=== PATIENT | male | born 1935 | race Caucasian/White ===

== ENCOUNTER 2024-11-27 17:37 | Emergency (ER) | payer MEDICARE, SELFPAY ==
--- NOTE | ~2024-11-27 | CT_ITS ---
EXAMINATION: CT brain wo con DATE: 11/27/2024 19:02 INDICATION: head injury . TECHNIQUE: Computed tomography (CT) of the head was performed without intravenous contrast. The mA wa s adjusted according to patient size. Iterative reconstruction technique was employed. The dose-lengt h product was 747.47 mGy-cm. COMPARISON: None. FINDINGS: Exam limited by nonstandard positioning. No acute intracranial hemorrhage or extra-axial fluid collection. No hydrocephalus, mass, or herniation. No acute ischemic infarct. Unremarkable dural venous sinus attenuation. No acute osseous abnormality. Right frontal scalp hematoma. Left frontal and anterior/middle ethmoid opacification, moderate left maxillary mucosal thickening, m ild right maxillary mucosal thickening, minimal aerated secretions in the left maxillary sinus, right mastoid fluid, the remaining aerated spaces are clear. IMPRESSION: No acute intracranial process. Left-sided OMU pattern of sinus disease with minimal aerated secretions that may indicate presence of acute sinusitis versus mild mucosal hemorrhage in the setting of trauma. Reviewed, dictated and finalized at location K. IMPRESSION: No acute intracranial process. Left-sided OMU pattern of sinus disease with minimal aerated secretions that ma y indicate presence of acute sinusitis versus mild mucosal hemorrhage in the se tting of trauma.
--- NOTE | 2024-11-27 17:42 | ED.FALL ---
HPI - Fall General Chief Complaint: Wound/Laceration Stated Complaint: lac s/p fall forward History of Present Illness HPI Narrative: Pt slid off cough onto ground. No LOC. Pt not on blood thinners. Pt his baseline per staff and EMS. Pt has superficial laceration to forehead with bandage in place. Unable to contact POA so not able to permit refusal. Related Data Allergies Allergy/AdvReac Type Severity Reaction Status Date / Time No Known Allergies Verified 08/14/09 11:45 Review of Systems Review of Systems: ROS unobtainable: Yes unobtainable due to mental status Exam Const: General: healthy appearing and no acute distress Nutritional Appearance: well nourished Limitations: altered mental status (baseline) HENMT: Head: laceration (superficial laceration to forehead no bleeding) Eyes: Conjunctivae: conjunctivae normal Neck: Neck: normal visual inspection and no lymphadenopathy Resp: Effort & Inspection: normal respiratory effort Auscultation: clear to auscultation bilaterally Cardio: Rate: regular rate Rhythm: regular rhythm GI: GI Palp: Yes Soft to palpation and No Tenderness to palpation present (GI) Auscultation: normal bowel sounds Skin: General skin exam: normal color Rashes: no rashes Neuro: General: moves all extremities and no focal motor deficits Extrem: General: normal to inspection and no clubbing, cyanosis or edema Psych: Other: combative MDM - Fall MDM Narrative Medical decision making narrative: Pt had mild fall off couch and seems to be at baseline. has suprficial lac. no blood thinners. should be safe for discharge back. Discharge Plan Discharge Clinical Impression: Laceration Patient Disposition: Home, Self-Care Condition: Stable Instructions: Antibiotic Form, Laceration (ED), Head Injury (DC) Patient Language: Kittitian Follow-up/Referrals: Cheng,Harsha Pichardo MD [Primary Care Provider] -
[2024-11-27 17:58] VITALS: BP 95/64; PULSE 67; RESP 20; TEMP 36.7; O2SAT 97
--- OUTSIDE RECORDS SUMMARY | 2024-11-27 19:21 | XMS_ITS | Clinical Summary ---
Author Organization [facility] Address [address] [place] [address] Phone Care Team Providers Care Marble Installer Name Role Phone Unavailable Unavailable Unavailable Reason for Visit and Chief Complaint GENERAL OFFICE VISIT Plan of Treatment No Plan of Treatment Recorded Assessments Includes: Assessments from this encounter No Assessments Recorded Medical Equipment - Implanted Devices Includes: Current Devices No Medical Equipment Recorded Medications Administered Includes: Administered Medications from this encounter No Administered Medications Recorded Results Includes: Results discussed during this encounter No Results Recorded For Specified Dates History of Present Illness Includes: History of Present Illness from this encounter No History of Present Illness Recorded Social History No Social History Recorded - Smoking Status Unknown Medical History Includes: Medical History addressed during this encounter No Medical History Recorded Family History Includes: Family History addressed during this encounter No Family History Recorded Review of Systems Includes: Review of Systems from this encounter No Review of Systems Recorded Mental Status Includes: Mental Status from this encounter No Mental Status Recorded Functional Status Includes: Functional Status from this encounter No Functional Status Recorded Physical Exam Includes: Physical Exam from this encounter No Physical Exam Recorded Encounters Encounter Provider Location Date Check-In Time Check- Out Time Diagnosis GENERAL OFFICE VISIT CHERYL BAEZ M.D. [facility] OP 1 9:30AM 11:59PM Clinical Notes Includes: Clinical Notes from this encounter No Clinical Notes Recorded
--- OUTSIDE RECORDS SUMMARY | 2024-11-27 19:22 | XMS_ITS ---
Care Plan - [facility] Medical Group [facility] Created on: November 27, 2024 GREGORIO LEWIS : 1935 Sex: Male Author Organization [facility] Medical [facility] S Address [address] [place] [phone] Phone Care Team Providers Care Weatherization Installer Name Role Phone CHERYL BAEZ MD Primary Care Provider
--- OUTSIDE RECORDS SUMMARY | 2024-11-27 19:22 | XMS_ITS | Clinical Summary ---
Author Organization [facility] Medical [facility] S Address [address] [place] [phone] Phone Care Team Providers Care Apprentice Embalmer Name Role Phone SASHA LANDRY, CHERYL MENDEZ Primary Care Provider [phone] Reason for Visit and Chief Complaint [facility] Plan of Treatment No Plan of Treatment [...] Date Check-In Time Check- Out Time Diagnosis [facility] CHERYL BAEZ MD [facility] 10:00AM 11:59PM Insurance Includes: Active Insurance Policies No Insurance Coverage Recorded Guarantor Relationship Effective Dates Guarantor Ph one GREGORIO LEWIS Self [id number] Clinical Notes Includes: Clinical Notes from this encounter No Clinical Notes Recorded
--- OUTSIDE RECORDS SUMMARY | 2024-11-27 19:22 | XMS_ITS | Clinical Summary ---
Author Organization [facility] Address [address] [place] [address] Phone Care Team Providers Care Wedding Makeup Artist Name Role Phone Unavailable Unavailable Unavailable Reason [...] Diagnosis GENERAL OFFICE VISIT CHERYL BAEZ M.D. [facility] OP 1 11:30AM 11:59PM Clinical Notes Includes: Clinical Notes from this encounter No Clinical Notes Recorded
--- OUTSIDE RECORDS SUMMARY | 2024-11-27 19:22 | XMS_ITS | Clinical Summary ---
Author Organization [facility] Address [address] [place] [address] Phone Care Team Providers Care Director Of Public Works Name Role Phone Unavailable Unavailable Unavailable Reason for Visit and Chief Complaint MEMORY [...] Out Time Diagnosis [facility] CHERYL BAEZ M.D. [facility] OP 2 11:30AM 11:59PM Clinical Notes Includes: Clinical Notes from this encounter No Clinical Notes Recorded
--- OUTSIDE RECORDS SUMMARY | 2024-11-27 19:22 | XMS_ITS | Encounter Summary ---
Author Organization [facility] Address [address] [place] [address] Phone Care Team Providers Care Oil And Gas Superintendent Name Role Phone Harsha Anand MD Primary Care Provider Kristi Roy MA Unavailable [phone] Danna Goel LCSW Unavailable [phone] Danna Goel LCSW Unavailable [phone] Lion More MD Primary Care Provider Harsha Anand MD Primary Care Provider Encounter Details Date Type Department Care Team (Late st Contact Info) Description 01/18/[address] [facility] ProviderJodee MD [facility] [place] [address] Social History Tobacco Use Types Packs/Day Years Used Date Smoking Tobacco: Never Smokeless Tobacco: Never Alcohol Use Standard Drinks/Week Comments Yes 0 (1 standard drink = 0.6 oz pur e alcohol) Sex and Gender Information Value Date Recorded Sex Assigned at Not on file Legal Sex Male 6:38 AM CONTAINER PACKER OPERATOR Gender Identity Not on file Sexual Orientation Not on file documented as of this encounter Plan of Treatment Not on file documented as of this encounter Procedures Procedure Name Priority Date/Time Associated Diagnosis Comments DISCHARGE LABORATORY CUMULATIVE REPORT 01/18/2018 12:00 AM CDT documented in this encounter Results * DISCHARGE LABORATORY CUMULATIVE REPORT (01/18/2018 12:00 AM CDT) Narrative 01/18/2018 12:00 AM CDT Ordered by an unspecified provider. us Historical Provider LAB BLOOD ORDERABLES Denice l Result documented in this encounter Visit Diagnoses Not on filedocumented in this encounter Additional Health Concerns Infection Onset Date Last Indicated Resolved Time COVID: Suspected 02/27/2022 02/27/2022 02/27/2022 10:15 AM CDT COVID: Suspected 06/07/2024 06/07/2024 06/07/2024 9:32 PM CDT COVID: Suspected 11/09/2024 11/09/2024 11/09/2024 2:24 PM CONTAINER PACKER OPERATOR COVID19 Comment:S&S onset date 11/09/2024. Pt is not immunosuppressed. Patient is first eligible for COVID: Recovered evaluation on 11/20/2024. Please reach out to Infection Prevention at that time to change isolation status if the provider feels criteria is met.Shon Rodgers IP Patient COVID-19 Recovered 11/20/2024 11/09/2024 11/09/2024 03/0 11/2024 7:40 AM CONTAINER PACKER OPERATOR COVID: Recovered Comment:Added based on recent COVID infection. 11/20/2024 11/20/2024 documented as of this encounter Care Teams Oil And Gas Superintendent Relationship Specialty Start Date End Date Harsha Anand MD PCP - General 12/18/16 08/03/24 Lion More MD [address] [place] [address] [place] [address] PCP - General Dermatology 08/04/24 10/15/24 Harsha Anand MD [address] [place] [address] [place] [address] PCP - General Internal Medicine 10/16/24 Kristi Roy, SIMON [address] [facility] [address] [place] [address] ACO Care Lead Ramp Service Man 05/13/21 05/13/21 Danna Goel LCSW [address] [place] [address] [address] [place] [address] Superintendent Storage Area 11/17/21 11/17/21 Danna Goel LCSW [address] [place] [address] [address] [place], [place] [id number] Superintendent Storage Area 11/17/21 12/09/21 documented as of this encounter
--- OUTSIDE RECORDS SUMMARY | 2024-11-27 19:22 | XMS_ITS ---
Author Organization [facility] S Address [address] [place] [phone] Phone Care Team Providers Care Manager Administration Name Role Phone CHERYL BAEZ MD Primary Care Provider [phone] Plan of Treatment No Plan of Treatment Recorded Assessments Includes: Assessments for all patient encounters No Assessments Recorded Medical Equipment - Implanted Devices Includes: Current and historical Devices No Medical Equipment Recorded Medications Administered Includes: Administered Medications in patient's chart No Administered Medications Recorded Results Includes: Results from 11/28/2023 through 11/27/2024 No Results Recorded For Specified Dates History of Present Illness History of Present Illness not supported for this document type No History of Present Illness Recorded Social History No Social History Recorded - Smoking Status Unknown Medical History Includes: Medical History in patient's chart No Medical History Recorded Family History Includes: Family History in patient's chart No Family History Recorded Review of Systems Review of Systems not supported for this document type No Review of Systems Recorded Mental Status No Mental Status Recorded Functional Status No Functional Status Recorded Physical Exam Physical Exam not supported for this document type No Physical Exam Recorded Insurance Includes: Active Insurance Policies No Insurance Coverage Recorded Guarantor Relationship Effective Dates Guarantor Ph one GREGORIO LEWIS Self [id number] Clinical Notes Includes: Signed Clinical Notes starting from 10/09/2022 No Clinical Notes Recorded
--- OUTSIDE RECORDS SUMMARY | 2024-11-27 19:22 | XMS_ITS | Encounter Summary ---
Author Organization [facility] Address [address] [place] [address] Phone Care Team Providers Care Oil Field Pumper Name Role Phone Harsha Anand MD Primary Care Provider Kristi Roy MA Unavailable [phone] Danna Goel LCSW Unavailable [phone] Danna Goel LCSW Unavailable [phone] Lion More MD Primary Care Provider Harsha Anand MD Primary Care Provider Encounter Details Date Type Department Care Team (Late st Contact Info) Description 11/08/2017 Orders Only [facility] ProviderJodee MD [facility] [place] [address] Social History Tobacco Use Types Packs/Day Years Used Date Smoking Tobacco: Never Smokeless Tobacco: Never Alcohol Use Standard Drinks/Week Comments Yes 0 (1 standard drink = 0.6 oz pur e alcohol) Sex and Gender Information Value Date Recorded Sex Assigned at Not on file Legal Sex Male 6:38 AM INSPECTOR SCREEN PRINTING Gender Identity Not on file Sexual Orientation Not on file documented as of this encounter Plan of Treatment Not on file documented as of this encounter Procedures Procedure Name Priority Date/Time Associated Diagnosis Comments DISCHARGE LABORATORY CUMULATIVE REPORT 11/08/2017 12:00 AM INSPECTOR SCREEN PRINTING documented in this encounter Results * DISCHARGE LABORATORY CUMULATIVE REPORT (11/08/2017 12:00 AM INSPECTOR SCREEN PRINTING) Narrative 11/08/2017 12:00 AM INSPECTOR SCREEN PRINTING Ordered by an unspecified provider. us Historical Provider LAB BLOOD ORDERABLES Denice l Result documented in this encounter Visit Diagnoses Not on filedocumented in this encounter Additional Health Concerns Infection Onset Date Last Indicated Resolved Time COVID: Suspected 02/27/2022 02/27/2022 02/27/2022 10:15 AM CDT COVID: Suspected 06/07/2024 06/07/2024 06/07/2024 9:32 PM CDT COVID: Suspected 11/09/2024 11/09/2024 11/09/2024 2:24 PM INSPECTOR SCREEN PRINTING COVID19 Comment:S&S onset date 11/09/2024. Pt is not immunosuppressed. Patient is first eligible for COVID: Recovered evaluation on 11/20/2024. Please reach out to Infection Prevention at that time to change isolation status if the provider feels criteria is met.Shon Rodgers IP Patient COVID-19 Recovered 11/20/2024 11/09/2024 11/09/2024 03/0 11/2024 7:40 AM INSPECTOR SCREEN PRINTING COVID: Recovered Comment:Added based on recent COVID infection. 11/20/2024 11/20/2024 documented as of this encounter Care Teams Oil Field Pumper Relationship Specialty Start Date End Date Harsha Anand MD PCP - General 12/18/16 08/03/24 Lion More MD [address] [facility] [place] [address] PCP - General Dermatology 08/04/24 10/15/24 Harsha Anand MD [address] [place] [address] [place] [address] PCP - General Internal Medicine 10/16/24 Kristi Roy, SIMON [address] [facility] [address] [place], [place] [phone] ACO Care Licensing Registration Examiner 05/13/21 05/13/21 Danna Goel, LUC [address] [place] [address] [address] [place], [place] [phone] Professor Of Genetics 11/17/21 11/17/21 Danna Goel LCSW [address] [place] [address] [address] [place] [address] Professor Of Genetics 11/17/21 12/09/21 documented as of this encounter
[2024-11-27 19:23] VITALS: BP 110/65; PULSE 66; RESP 18; RESP 19; O2SAT 98
--- OUTSIDE RECORDS SUMMARY | 2024-11-27 19:23 | XMS_ITS | Encounter Summary ---
Author Organization [facility] Address [address] [facility] [place] [address] Care Team Providers Care Link Cutter Name Role Phone Unavailable Primary Care Provider Unavailabl e Encounter Details Date Type Department Care Team (Late st Contact Info) Description 08/21/2020 Lab Requisition [facility] DermPath Lab [address] [facility] [place] [phone] Lion More MD [address] [place] [address] Social History Tobacco Use Types Packs/Day Years Used Date Smoking Tobacco: Never Assessed Sex and Gender Information Value Date Recorded Sex Assigned at Not on file Gender Identity Not on file Sexual Orientation Not on file documented as of this encounter Plan of Treatment Not on file documented as of this encounter Procedures Procedure Name Priority Date/Time Associated Diagnosis Comments DERMATOPATHOLOGY Routine 08/20/2020 12:0 0 AM DEVICE PROCESSING ENGINEER documented in this encounter Results * DERMATOPATHOLOGY (08/20/2020 12:00 AM DEVICE PROCESSING ENGINEER) Case Report Dermatopathology Report Case: [id number] Authorizing Provider: Lion More MD Collected: 08/20/2020 12:00 AM Ordering Location: [facility] Derm[facility] Lab Received: 08/21/2020 10:53 AM Pathologist: Chastity Gutierrez MD Specimens: A) - Skin, right lower outer arm above elbow B) - Skin, right mid post upper arm 0 4:13 PM DEVICE PROCESSING ENGINEER DERMATOPATHOLOGY LABORATORY Final Diagnosis Specimen A. SKIN, right lower outer arm above elbow: BENIGN VERRUCOUS KERATOSIS, INFLAMED (L82.1) Specimen B. SKIN, right mid post upper arm: BENIGN VERRUCOUS KERATOSIS, INFLAMED (L82.1) 0 4:13 PM [facility] DERMATOPATHOLOGY LABORATORY Clinical History A-B: R/O SCC. 0 4:13 PM [facility] DERMATOPATHOLOGY LABORATORY Gross Description Specimen A: Received is one formalin filled container labeled with the patient's name and designated right lower outer arm above elbow. The specimen consists of a shave biopsy measuring [id number]. Jar 0. Specimen B: Received is one formalin filled container labeled with the patient's name and designated right mid post upper arm. The specimen consists of a shave biopsy measuring [id number]. Jar 0. 0 4:13 PM [facility] DERMATOPATHOLOGY LABORATORY Microscopic Description Specimen A. SKIN, right lower outer arm above elbow: Sections show hyperkeratosis, papillomatosis, hypergranulosis, and acanthosis. Inflammatory cells are present within the dermis. These histological findings can be seen in a verruca vulgaris or a seborrheic keratosis. Specimen B. SKIN, right mid post upper arm: Sections show hyperkeratosis, papillomatosis, hypergranulosis, and acanthosis. Inflammatory cells are present within the dermis. These histological findings can be seen in a verruca vulgaris or a seborrheic keratosis. 0 4:13 PM [facility] DERMATOPATHOLOGY LABORATORY Disclaimer An external and internal positive and negative controls are appropriate for the histochemical, immunohistochemical and immunofluorescence stain(s) in this case (if any), except where stated explicitly. The performance characteristics of the stain(s) cited in this report were developed and its performance characteristic determined by the Dermatopathology Laboratory at [facility], directed by Dr. Deion Bhatt. These tests need not be, and therefore are not, approved by the [place] Food and Drug Administration. The tests are used for clinical purposes. Billing Codes Specimen Charges Stain Charges 14045 35918 1 1 0 4:13 PM [facility] DERMATOPATHOLOGY LABORATORY Embedded Images 0 4:13 PM [facility] DERMATOPATHOLOGY LABORATORY Pathology/Cytology TISSUE SPECIMEN FROM SKIN / Unknown 08/20/2020 08/21/2020 10:53 AM DEVICE PROCESSING ENGINEER Miscellaneous samples (specimen) TISSUE SPECIMEN FROM SKIN / Unknown 08/20/2020 08/21/2020 10:53 AM DEVICE PROCESSING ENGINEER Lion More MD LAB - PATHOLOGY/CYTO LOGY ORDERABLES DERMATOPATHOLOGY LABORATORY [facility] - Department of Dermatology [facility] Medicine [address] [place] [address], [address] [phone] documented in this encounter Visit Diagnoses Not on filedocumented in this encounter
--- OUTSIDE RECORDS SUMMARY | 2024-11-27 19:23 | XMS_ITS | Encounter Summary ---
Author Organization [facility] Address [address] [facility] [place] [address] Care Team Providers Care On Line Csr Name Role Phone Unavailable Primary Care Provider Unavailabl e Encounter Details Date Type Department Care Team (Late st Contact Info) Description 07/06/2018 Lab Requisition [facility] DermPath Lab [address] [facility] [place] [phone] Lion More MD [address] [place] [address] Social History Tobacco Use Types [...] Priority Date/Time Associated Diagnosis Comments DERMATOPATHOLOGY Routine 07/05/2018 12:0 0 AM CDT documented in this encounter Results * DERMATOPATHOLOGY (07/05/2018 12:00 AM CDT) Case Report Dermatopathology Report Case: [id number] Authorizing Provider: Lion More MD Collected: 07/05/2018 12:00 AM Pathologist: Cachorro Bhatt MD Received: 07/06/2018 12:19 PM Specimen: Skin, left vertex post scalp 8 4:46 PM CDT DERMATOPATHOLOGY LABORATORY Final Diagnosis Specimen A. SKIN, left vertex post scalp: HYPERPLASTIC (HYPERTROPHIC) ACTINIC KERATOSIS (L57.0) HEALING SKIN CHANGES (L90.5) 8 4:46 PM CDT DERMATOPATHOLOGY LABORATORY Clinical History R/O Matias's. 4:46 PM CDT DERMATOPATHOLOGY LABORATORY Gross Description Specimen A: Received is one formalin filled container labeled with the patient's name and designated left vertex post scalp. The specimen consists of a shave biopsy measuring [id number]. Jar 0. 4:46 PM CDT DERMATOPATHOLOGY LABORATORY Microscopic Description Specimen A. SKIN, left vertex post scalp: There is hyperkeratosis alternating with parakeratosis. There is epidermal hyperplasia with disorderly maturation of keratinocytes with nuclear pleomorphism confined to the lower half of the epidermis. There is epidermal hyperplasia beneath which there are vascular proliferation, fibroblasts, and an edematous stroma. 4:46 PM CDT DERMATOPATHOLOGY LABORATORY Disclaimer An external and internal positive and negative controls are appropriate for the histochemical, immunohistochemical and immunofluorescence stain(s) in this case (if any), except where stated explicitly. The performance characteristics of the stain(s) cited in this report were developed and its performance characteristic determined by the Dermatopathology Laboratory at [facility]. These tests need not be, and therefore are not, approved by the [place] Food and Drug Administration. The tests are used for clinical purposes. Billing Codes Specimen Charges Stain Charges 65130 1 4:46 PM CDT DERMATOPATHOLOGY LABORATORY Embedded Images 4:46 PM CDT DERMATOPATHOLOGY LABORATORY Pathology/Cytolog y TISSUE SPECIMEN FROM SKIN / Unknown 07/05/2018 07/06/2018 12:19 PM CDT Lion More MD LAB - PATHOLOGY/CYTO LOGY ORDERABLES Performing Organization Address City/State/[facility] Co de Phone Number DERMATOPATHOLOGY LABORATORY [facility] - Department of Dermatology [address] [place] [address], [address]th [place] [address], [facility] [phone] documented in this encounter Visit Diagnoses Not on filedocumented in this encounter
--- OUTSIDE RECORDS SUMMARY | 2024-11-27 19:23 | XMS_ITS ---
Care Plan - [facility] Created on: November 27, 2024 GREGORIO LEWIS : 1935 Sex: Male Author Organization [facility] Address [address] [place] [address] Phone Care Team Providers Care Pattern Drum Maker Name Role Phone Unavailable Unavailable Unavailable
--- OUTSIDE RECORDS SUMMARY | 2024-11-27 19:23 | XMS_ITS | Clinical Summary ---
Author Organization [facility] Address [address] [place] [address] Care Team Providers Care Asphalt Tar And Gravel Roofer Name Role Phone Unavailable Primary Care Provider Unavailabl e Source Comments [facility],non-owned Affiliates and Associated Physician Practices is amultiple site organization consisting of ambulatory clinics and hospital sitesin [place], [place], [place] and [place]. This disclosure is being madepursuant to the Care Everywhere program and may not contain all information available regarding this patient. Last updated 18.[facility] [employer] Social History Tobacco Use Types Packs/Day Years Used Date Smoking Tobacco: Never Assessed Sex and Gender Information Value Date Recorded Sex Assigned at Not on file Gender Identity Not on file Sexual Orientation Not on file Plan of Treatment Health Maintenance Due Date Last Done Comments MEDICARE AWV 12 MONTHS 1936 DTAP/TDAP/TD VACCINES (1 - Tdap) 1955 PNEUMOCOCCAL VACCINE 50+ (1 of 1 - PCV) 1986 ZOSTER VACCINE (1 of 2) 1986 Respiratory Syncytial Virus (RSV) Vaccine Pt: or over 60 yrs (1 - 1-dose 75+ series) 2011 COVID-19 VACCINE (2023-2 5 season) 2024 INFLUENZA VACCINE (#1) 2024 DEPRESSION SCREENING 09/20/2024 HEPATITIS B VACCINE Aged Out No longe r eligible based on patient's age to complete this topic HIB VACCINE Aged Out No longer eligi ble based on patient's age to complete this topic HPV VACCINE Aged Out No longer eligi ble based on patient's age to complete this topic MENINGOCOCCAL (Group B) VACCINE Aged Out No longer eligible based on patient's age to complete this topic MENINGOCOCCAL VACCINE Aged Out No marlen praveena eligible based on patient's age to complete this topic
--- OUTSIDE RECORDS SUMMARY | 2024-11-27 19:23 | XMS_ITS | Encounter Summary ---
Author Organization [facility] Address [address] [place] [address] Care Team Providers Care Chucking Machine Set Up Operator Name Role Phone Unavailable Primary Care Provider Unavailabl e Encounter Details Date Type Department Care Team (Late st Contact Info) Description 08/21/2019 Lab Requisition [facility] [address] [place] [id number] Lion More MD [address] [place] [address] Social History Tobacco Use Types [...] Priority Date/Time Associated Diagnosis Comments DERMATOPATHOLOGY Routine 08/14/2019 12:0 0 AM MACHINE HAND documented in this encounter Results * DERMATOPATHOLOGY (08/14/2019 12:00 AM MACHINE HAND) Case Report Dermatopathology Report Case: [id number] Authorizing Provider: Lion More MD Collected: 08/14/2019 12:00 AM Ordering Location: [facility] Received: 08/21/2019 01:17 PM Pathologist: Cachorro Bhatt MD Specimens: A) - Skin, right arm B) - Skin, abdomen 9 4:37 PM [facility]ACHINE HAND DERMATOPATHOLOGY LABORATORY Final Diagnosis Specimen A. SKIN, right arm: SPONGIOTIC DERMATITIS WITH EOSINOPHILS (L30.8) (see microscopic description and comment) Specimen B. SKIN, abdomen: SPONGIOTIC DERMATITIS WITH EOSINOPHILS (L30.8) (see microscopic description and comment) 9 4:37 PM [facility] DERMATOPATHOLOGY LABORATORY Clinical History A-B: R/O eczema. 4:37 PM [facility] DERMATOPATHOLOGY LABORATORY Gross Description Specimen A: Received is one formalin filled container labeled with the patient's name and designated right arm. The specimen consists of a punch biopsy measuring [id number], bisected. Jar 0. Specimen B: Received is one formalin filled container labeled with the patient's name and designated abdomen. The specimen consists of a punch biopsy measuring [id number], bisected. Jar 0. 4:37 PM [facility] DERMATOPATHOLOGY LABORATORY Microscopic Description Specimen A. SKIN, right arm: There is focal parakeratosis and spongiosis. In the dermis there is a mainly superficial perivascular lymphohistiocytic inflammatory infiltrate with eosinophils. Grocott's methenamine silver (GMS) stain fails to highlight fungal elements in the available sections. COMMENT: The histological differential diagnosis includes a contact dermatitis, an eczematous drug eruption, and less likely the urticarial phase of bullous pemphigoid. Specimen B. SKIN, abdomen: There is focal parakeratosis and spongiosis. In the dermis there is a mainly superficial perivascular lymphohistiocytic inflammatory infiltrate with eosinophils. Grocott's methenamine silver (GMS) stain fails to highlight fungal elements in the available sections. COMMENT: The histological differential diagnosis includes a contact dermatitis, an eczematous drug eruption, and less likely the urticarial phase of bullous pemphigoid. 4:37 PM [facility] DERMATOPATHOLOGY LABORATORY Disclaimer An external and internal positive and negative controls are appropriate for the histochemical, immunohistochemical and immunofluorescence stain(s) in this case (if any), except where stated explicitly. The performance characteristics of the stain(s) cited in this report were developed and its performance characteristic determined by the Dermatopathology Laboratory at [facility], directed by Dr. Deion Bhatt. These tests need not be, and therefore are not, approved by the [place] Food and Drug Administration. The tests are used for clinical purposes. Billing Codes Specimen Charges Stain Charges 84780 09442 1 1 76811 93745 1 1 4:37 PM [facility] DERMATOPATHOLOGY LABORATORY Embedded Images 12/05/201 9 4:37 PM [facility]ACHINE HAND DERMATOPATHOLOGY LABORATORY Pathology/Cytology TISSUE SPECIMEN FROM SKIN / Unknown 08/14/2019 08/21/2019 1:17 PM MACHINE HAND Miscellaneous samples (specimen) TISSUE SPECIMEN FROM SKIN / Unknown 08/14/2019 08/21/2019 1:17 PM MACHINE HAND Loin More MD LAB - PATHOLOGY/CYTO LOGY ORDERABLES DERMATOPATHOLOGY LABORATORY [facility] - Department of Dermatology [address] [place] [address], [address] Floor Lab [address] [phone] documented in this encounter Visit Diagnoses Not on filedocumented in this encounter
--- OUTSIDE RECORDS SUMMARY | 2024-11-27 19:23 | XMS_ITS | Patient Health Summary ---
Author Organization [facility] Address [address] [place] [address] Care Team Providers Care Salon Sales Consultant Name Role Phone Unavailable Primary Care Provider Unavailabl e Note from [facility],non-owned Affiliates and Associated Physician Practices is amultiple site organization consisting of ambulatory clinics and hospital sitesin [place], [place], [place] and [place]. This disclosure is being madepursuant to the Care Everywhere program and may not contain all information available regarding this patient. Last updated 18.[facility] Social History Tobacco Use Types Packs/Day Years Used Date Smoking Tobacco: Never Assessed Sex and Gender Information Value Date Recorded Sex Assigned at Not on file Gender Identity Not on file Sexual Orientation Not on file Procedures * DERMATOPATHOLOGY(Performed 09/24/2020) * DERMATOPATHOLOGY(Performed 08/20/2020) * DERMATOPATHOLOGY(Performed 08/14/2019) * DERMATOPATHOLOGY(Performed 07/05/2018) * DERMATOPATHOLOGY(Performed 06/02/2018) * DERMATOPATHOLOGY(Performed 12/11/2015) * DERMATOPATHOLOGY(Performed 11/19/2015) Results * DERMATOPATHOLOGY (09/24/2020 12:00 AM GREEN PIPEFITTER) Only the most recent of7 resultswithin the time period is included. Case Report Dermatopathology Report Case: [id number] Authorizing Provider: Lion More MD Collected: 09/24/2020 12:00 AM Ordering Location: [facility] Received: 09/25/2020 10:34 AM Pathologist: Chastity Gutierrez MD Specimen: Skin, posterior upper right arm 12:56 PM [facility]EFITTER DERMATOPATHOLOGY LABORATORY Final Diagnosis Specimen A. 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 12:56 PM [facility] DERMATOPATHOLOGY LABORATORY Gross Description Specimen A: Received is one formalin filled container labeled with the patient's name and designated posterior upper right arm. The specimen consists of a shave biopsy measuring [id number]. Jar 0. 12:56 PM [facility] DERMATOPATHOLOGY LABORATORY Microscopic Description Specimen A. SKIN, posterior upper right arm: There is hyperkeratosis alternating with parakeratosis. There is epidermal hyperplasia with disorderly maturation of keratinocytes with nuclear pleomorphism confined to the lower half of the epidermis. The lesion is inflamed. 12:56 PM [facility] DERMATOPATHOLOGY LABORATORY Disclaimer An external and internal positive and negative controls are appropriate for the histochemical, immunohistochemical and immunofluorescence stain(s) in this case (if any), except where stated explicitly. The performance characteristics of the stain(s) cited in this report were developed and its performance characteristic determined by the Dermatopathology Laboratory at [facility], directed by Dr. Deion Bhatt. These tests need not be, and therefore are not, approved by the [place] Food and Drug Administration. The tests are used for clinical purposes. Billing Codes Specimen Charges Stain Charges 05328 1 12:56 PM [facility] DERMATOPATHOLOGY LABORATORY Embedded Images 12:56 PM [facility] DERMATOPATHOLOGY LABORATORY Pathology/Cytolog y TISSUE SPECIMEN FROM SKIN / Unknown 09/24/2020 09/25/2020 10:34 AM [facility] Lion More MD LAB - PATHOLOGY/CYTO LOGY ORDERABLES DERMATOPATHOLOGY LABORATORY [facility] - Department of Dermatology [address], [address] [phone]
--- OUTSIDE RECORDS SUMMARY | 2024-11-27 19:23 | XMS_ITS | Clinical Summary ---
Author Organization [facility] Medical [facility] Address [address] [place] [phone] Phone Care Team Providers Care Felting Machine Operator Name Role Phone SASHA LANDRY, CHERYL MENDEZ Primary Care Provider [phone] Reason for Visit and Chief Complaint [facility] [...] CLINIC CHERYL BAEZ [facility] 10:30AM 11:59PM Insurance Includes: Active Insurance Policies No Insurance Coverage Recorded Guarantor Relationship Effective Dates Guarantor Ph one GREGORIO LEWIS Self [id number] Clinical Notes Includes: Clinical Notes from this encounter No Clinical Notes Recorded
--- OUTSIDE RECORDS SUMMARY | 2024-11-27 19:23 | XMS_ITS | Referral Summary ---
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 Name Role Phone Harsha Anand MD Primary Care Provider Encounters Date Type Department Care Team Description 11/20/2024 12:55 PM KAITARA TARAKA - 11/20/2024 11:59 PM KAITARA TARAKA Hospital Encounter [facility] Emergency, Room R Discharge Disposition: Discharge to home or self care 11/09/2024 12:25 PM KAITARA TARAKA - 11/20/2024 1:19 PM KAITARA TARAKA Hospital Encounter [address] [address] Pricilla Ramírez MD Hoelscher, John Arthur, MD Davis, Cedric Emden II, MD Kheirkhahan, Nazanin, MD Singh, Arjun, MD Sargsyan, Narine, MD Somnolence (Primary Dx); COVID; BRITTANI (acute kidney injury); Dehydration; Lorazepam adverse reaction, initial encounter Discharge Disposition: Discharge to SNF 11/09/2024 1:03 PM KAITARA TARAKA - 11/09/2024 11:59 PM KAITARA TARAKA Hospital Encounter [facility] Emergency, Room R Discharge Disposition: Discharge to home or self care 11/01/2024 3:26 PM KAITARA TARAKA - 11/01/2024 11:59 PM KAITARA TARAKA Hospital Encounter [facility] [address] [place] [address] Discharge Disposition: Discharge to home or self care 10/24/2024 Telephone [facility] at [address] [address] Harsha Anand MD Medical Question/Miscellane ous 10/21/2024 Nurse Triage [facility] Primary Care at [address] [address] Aminata Acevedo, ART 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) 10/21/2024 Nurse Triage [facility] Primary Care at [address] [address] Kirsten Mckenna, ART 10/17/2024 Telephone [facility] Primary Care at [address] [phone] Harsha Anand MD Paperwork 10/16/2024 Orders Only [facility] at [address] [address] Harsha Anand MD 10/16/2024 Telephone [facility] at [address] [address] Harsha Anand MD 10/16/2024 Telephone [facility] at [address] [phone] Lion More MD 10/13/2024 10:00 AM KAITARA TARAKA Lab [address] Type 2 diabetes mellitus with diabetic polyneuropathy, without long-term current use of insulin (HCC) 10/10/2024 4:00 PM KAITARA TARAKA Office Visit [facility] at [address] [address] Harsha Anand MD Medicare annual wellness visit, subsequent (Primary Dx); Alzheimer's disease (HCC); Benign hypertension; Degenerative lumbar spinal stenosis; Multiple-type hyperlipidemia; Obstructive sleep apnea syndrome; Type 2 diabetes mellitus with diabetic polyneuropathy, without long-term current use of insulin (HCC); Class 1 obesity due to excess calories with body mass index (BMI) of 31.0 to 31.9 in adult, unspecified whether serious comorbidity present 10/05/2024 Telephone [facility] [place] [address] [facility] [address] [place] [address] Lion More MD Appointment 09/11/2024 2:38 PM KAITARA TARAKA - 09/11/2024 6:21 PM [facility] Emergency [facility] Emergency Department [address] [place] [address] Discharge Disposition: Left without being seen from Last 3 Months Allergies No known active allergies Medications lisinopril-hydroCH LOROthiazide (PRINZIDE,ZESTORET IC) 10-12.5 mg per tablet TAKE 1 TABLET BY MOUTH EVERY DAY 90 tablet 3 07/28/20 18 Active clopidogreL (PLAVIX) 75 mg tablet TAKE 1 TABLET BY MOUTH DAILY FOR TIA 90 tablet 3 02/16/20 24 Active folic acid (FOLVITE) 1 mg tablet Take 1 tablet (1 mg total) by mouth daily 30 tablet 11 10/16/19 25 Active diphenhydrAMINE (BENADRYL) 25 mg capsule Take 1 tablet/capsul e (25 mg total) by mouth 4 (four) times a day as needed for itching or allergies 11/21/19 25 Active OLANZapine (ZyPREXA ZYDIS) 5 mg disintegrating tablet Take 1 tablet (5 mg total) by mouth nightly 11/21/19 25 025 Active OLANZapine (ZyPREXA) 2.5 mg tablet Take 1 tablet (2.5 mg total) by mouth every morning 11/22/19 25 025 Active gabapentin (NEURONTIN) 400 mg capsule TAKE 1 CAPSULE BY MOUTH 3 TIMES DAILY 270 capsule 3 04/12/20 24 025 Discontin ued(Stop Taking at Discharge ) triamcinolone (KENALOG) 0.1 % cream 1 g 2 (two) times a day 06/02/20 24 025 Discontin ued(Stop Taking at Discharge ) multivitamin tablet Take 1 tablet by mouth daily 30 tablet 11 10/16/19 25 025 Discontin ued(Stop Taking at Discharge ) calcium carbonate (Calcium 500) 1,250 mg (500 mg elemental) chewable tablet Take 1 tablet (1,250 mg total) by mouth daily 30 tablet 11 10/16/19 25 025 Discontin ued(Stop Taking at Discharge ) divalproex DR (DEPAKOTE) 250 mg EC tabletIndications: 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) Take 1 tablet (250 mg total) by mouth 2 (two) times a day 60 tablet 1 10/21/19 025 Discontin ued(Stop Taking at Discharge ) Active Problems Problem Noted Date Diagnosed Date COVID 11/18/2024 Moderate protein-calorie malnutrition 11/16/2024 Somnolence 11/09/2024 Altered mental status, unspe cified altered mental status type 06/07/2024 Centrilobular emphysema 03/31/2024 Hiatal hernia 08/03/2023 Dementia with behavioral disturbance 08/03/2023 Type 2 diabetes mellitus wit h diabetic polyneuropathy, without long-term current use of insulin 12/09/2021 Assessment & Plan (07/14/2023 1:04 PM CDT): Lab Results Component Value Date HGBA1C 6.3 (H) 06/08/2023 HGBA1C 6.6 (H) 12/07/2022 HGBA1C 6.2 (H) 06/04/2022 Lab Results Component Value Date MICROALBUR 2.4 05/15/2019 LDLCALC 82 06/08/2023 CREATININE 1.08 06/08/2023 At goal at this time Continue zestoretic 10-12.5 mg every day Medicare annual wellness visit, subsequent 06/09 Degenerative lumbar spinal stenosis 01/16/2021 Lumbar facet arthropathy 01/16/2021 DDD (degenerative disc disease), lumbar 01/17/20 Sacroiliitis 01/16/2021 care home current use of anticoagulant Abnormal fasting glucose 06/03/2020 Itching 11/28/2019 Chronic idiopathic constipation 10/13/2018 Assessment & Plan (10/13/2018 2:05 PM KAITARA TARAKA): Clinically stable w/o concerns of obstruction. Cont increase fiber, water intake. 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 Recommended medrol pack, heat, stretching, and tylenol prn. He requested imaging to reassure this is just arthritis. Will f/u pending results of xray with additional recommendations if indicated. RTC prn Atopic dermatitis 08/29/2018 Assessment & Plan (10/13/2018 2:04 PM KAITARA TARAKA): Controlled well with OTC hypoallergenic soaps and triamcinolone BID as needed avoidance of eyes encouraged Assessment & Plan (08/29/2018 11:06 AM KAITARA TARAKA): Refilled triamcinolone 0.1% ointment, rather than cream, to apply twice daily, blanca before beditime along with oatmeal baths, atarax 25mg 0.5-1 tablet QHS prn. RTC with little improvement in week and we'll consider steroids. Bilateral lower extremity edema 08/29/2018 Assessment & Plan (08/29/2018 11:12 AM KAITARA TARAKA): Discussion with patient office today regarding his swelling in legs, appears to be stable somewhat chronic for patient. JERO appears to be stable on CPAP per patient. He was asking more as to what he can do for this considering lack of other symptoms including any orthopnea, PROCTOR as he is regularly active, and low-sodium diet this likely more to be of the venous insufficiency. I did educate him to elevate legs at heart level or above, wearing sequential stockings and certainly low-sodium diet. I also reviewed his last 2D echocardiogram indicated trivial mitral regurg in 2015, and offered a repeat echo. He did declined at this time will follow-up desire Asymmetrical sensorineural hearing loss 07/20/20 14 Irritable bowel syndrome 02/03/2014 Overview (12/23/2016): IRRITABLE BOWEL SYNDROME Multiple-type hyperlipidemia 02/03/2014 Overview (12/23/2016): MIXED HYPERLIPIDEMIA Iron deficiency anemia 02/03/2014 Overview (12/23/2016): IRON DEFIC ANEMIA NOS Alzheimer's disease 09/15/2013 Overview (12/23/2016): ALZHEIMER'S DISEASE Macular degeneration 03/16/2013 Overview (12/23/2016): Macular degeneration Benign hypertension 03/16/2013 Overview (12/23/2016): Hypertension, benign Assessment & Plan (07/14/2023 1:04 PM CDT): BP Readings from Last 3 Encounters: 07/14/23 122/70 06/18/23 118/72 03/15/23 135/78 Vitals BP 122/70 (BP Location: Left arm, Patient Position: Sitting) Pulse 84 Resp 18 Ht 162.6 cm (5' 4.02 ) Wt 98.4 kg (217 lb) SpO2 95% BMI 37.23 kg/m Lab Results Component Value Date POTASSIUM 4.6 06/08/2023 At goal Continue zestoretic 10-12.5 mg every day Assessment & Plan (08/06/2021 12:33 PM KAITARA TARAKA): Recommend DASH diet, heart-healthy lifestyle, exercise. Discussed the risks of hypertension. Assessment & Plan (05/21/2021 8:16 PM CDT): Recommend DASH diet, heart-healthy lifestyle, exercise. Discussed the risks of hypertension. Assessment & Plan (02/21/2021 8:13 AM CDT): Recommend DASH diet, heart-healthy lifestyle, exercise. Discussed the risks of hypertension. Assessment & Plan (12/05/2019 9:57 AM CDT): Recommend DASH diet, heart-healthy lifestyle, exercise. Discussed the risks of hypertension. Assessment & Plan (08/29/2018 11:11 AM KAITARA TARAKA): Stable in office today. Continue current antihypertensives, low-sodium/dash diet monitoring of swelling in legs was discussed below and follow-up in office as scheduled for repeat labs in office visit Obstructive sleep apnea syndrome 12/18/2011 Overview (12/23/2016): Obstructive sleep apnea syndrome Severe obesity (BMI 35.0-35.9 with comorbidity) ([facility]) 12/18/2011 Overview (12/23/2016): Obesity Assessment & Plan (07/14/2023 1:01 PM CDT): Wt Readings from Last 3 Encounters: 07/14/23 98.4 kg (217 lb) 06/18/23 98 kg (216 lb) 03/15/23 97.1 kg (214 lb) BMI Readings from Last 3 Encounters: 07/14/23 37.23 kg/m 06/18/23 37.08 kg/m 03/15/23 36.71 kg/m Not at goal of bmi <30 Continue diet and exercise BMI Follow-up includes: nutrition counseling and exercise counseling. Resolved Problems Problem Noted Date Diagnosed Date Resolved Date Sore throat 01/18/2018 01/18/2018 Assessment & Plan (01/18/2018 10:17 AM CDT): Rapid strep negative Acute URI 01/18/2018 05/26/2018 Assessment & Plan (01/18/2018 10:31 AM CDT): Rapid strep negative in office today however based on clinical examination we obtained a throat culture and treating him for likely bacterial URI with amoxicillin 875 twice daily for full 10 day course, throat lozenges or salt water gargles, continue humidification or vaporizer use at night, Tylenol p.r.n. for pain as he is currently taking Plavix. 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 Noise effect on inner ear 07/10/2014 Fasciitis 02/03/2014 05/10/2017 Overview (12/23/2016): FASCIITIS NOS Hypogonadism in male 03/04/2012 017 Overview (12/23/2016): Hypogonadism male Morbid obesity 12/18/2011 10/13/2018 Overview (12/23/2016): Morbid obesity Hypersomnia with sleep apnea 12/18/2011 05/10/2017 Overview (12/23/2016): 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 12/18/2011 05/10/2017 Overview (12/23/2016): Periodic limb movement disorder Sleep apnea 09/03/2011 05/10/2017 Overview (12/23/2016): Sleep apnea Immunizations Immunization Administration Dates Next Due Influenza, Quad, Adjuvantate d, Intramuscular 06/17/2022 Influenza, Quadrivalent, Hig h Dose, Preservative Free, Intrr 07/01/2023,06/20/2021 Influenza, Trivalent, Adjuva nted, Intramuscular 06/27/2024 Influenza, Trivalent, High D ose, Split, Preservative Free, Intramuscular 06/15/2018,06/28/2017,06/23/2016 Influenza, Trivalent, IM (MDV) 07/06/2014,2010 Influenza, Unspecified 06/19/2021,2020(Deferred: Patient Refused),05/22/2021(Deferred: Patient Refused),06/19/2020,06/03/2020(Deferre d: Patient Refused),07/12/2019 Pfizer SARS-CoV-2 Monovalent Vaccination (12+ Yrs) PURPLE 08/02/2021,2021,11/13/2020,10/23 Pneumococcal Conjugate PCV 13 04/16/2015 Pneumococcal Polysaccharide PPV23 09/20/2002 Tdap 05/11/2021,05/29/2019 ZOSTER LIVE 08/15/2016 ZOSTER Recombinant 09/07/2019,06/15/2019 Social History Tobacco Use Types Packs/Day Years Used Date Smoking Tobacco: Former Cigarettes 1 1983 Smokeless Tobacco: Never Alcohol Use Standard Drinks/Week Comments Yes 0 (1 standard drink = 0.6 oz pur e alcohol) [facility] Utilities Answer Date Recorded In the past 12 months has th e [employer], gas, oil, or water [employer] threatened to shut off services in your home? No 11/13/2024 Social Connection and Isolation Panel [NHANES] A nswer Date Recorded In a typical week, how many times do you talk on the phone with family, friends, or neighbors? Twice a week 11/13/2024 How often do you get together with friends or re latives? Twice a week 11/13/2024 How often do you attend cheondoism or hinduism serv ices? Never 11/13/2024 Do you belong to any clubs o r organizations such as cheondoism groups, unions, fraternal or athletic groups, or school groups? No 11/13/2024 How often do you attend meet ings of the clubs or organizations you belong to? Never 11/13/2024 Are you , , di vorced, , never , or living with a partner? 11/13/2024 AUDIT-C Answer Date Recorded Q1: How often do you have a drink containing alcohol? Never 12/21/2023 Q2: How many drinks containi ng alcohol do you have on a typical day when you are drinking? Patient does not drink Q3: How often do you have si x or more drinks on one occasion? Never 12/21/2023 Overall Financial Resource Strain (CARDIA) Answe r Date Recorded How hard is it for you to pa y for the very basics like food, housing, medical care, and heating? Not hard at all 11/13/2024 PHQ-2 Answer Date Recorded PHQ-2 Total Score (If total score is 3 or more points, staff should administer the PHQ-9) 0 11/18/2024 Hunger Vital Sign Answer Date Recorded Within the past 12 months, y ou worried that your food would run out before you got the money to buy more. Never true 11/13/19 25 Within the past 12 months, t he food you bought just didn't last and you didn't have money to get more. Never true 11/13/2024 PRAPARE - Transportation Answer Date Re corded In the past 12 months, has l ack of transportation kept you from medical appointments or from getting medications? No 10/22 In the past 12 months, has l ack of transportation kept you from meetings, work, or from getting things needed for daily living? No 11/13/2024 Housing Stability Vital Sign Answer Sascha e Recorded In the last 12 months, was t here a time when you were not able to pay the mortgage or rent on time? No 11/19/2021 In the last 12 months, how many places have you lived? 1 11/19/2021 In the last 12 months, was t here a time when you did not have a steady place to sleep or slept in a prison (including now)? No 11/19/2021 Housing Stability Vital Sign Answer Sascha e Recorded In the last 12 months, was t here a time when you were not able to pay the mortgage or rent on time? No 11/13/2024 In the past 12 months, how m any times have you moved where you were living? 0 11/13/2024 At any time in the past 12 m [facility], were you homeless or living in a prison (including now)? No 11/13/2024 Personal Safety Answer Date Recorded Have you ever been in or are you currently in a harmful physical or emotional relationship or is someone making you feel afraid or unsafe? Denies 11/09/2024 Sex and Gender Information Value Date Recorded Sex Assigned at Not on file Legal Sex Male 6:38 AM KAITARA TARAKA Gender Identity Not on file Sexual Orientation Not on file Last Filed Vital Signs Vital Sign Reading Time Taken Comments Blood Pressure 108/54 11/20/2024 8:14 AM KAITARA TARAKA Pulse 86 11/20/2024 8:14 AM KAITARA TARAKA Temperature 36 C (96.8 F) 11/20/2024 8:14 AM KAITARA TARAKA Respiratory Rate 14 11/20/2024 8:14 AM KAITARA TARAKA Oxygen Saturation 91% 11/20/2024 8:14 AM KAITARA TARAKA Inhaled Oxygen Concentration - - Weight 90.2 kg (198 lb 12.4 oz) 11/16/2024 5:00 AM KAITARA TARAKA Height 170.2 cm (5' 7.01 ) 11/09/2024 8:12 PM CS T Body Mass Index 31.13 11/09/2024 8:12 PM KAITARA TARAKA Plan of Treatment Not on file Procedures Procedure Name Priority Date/Time Associated Diagnosis Comments EGFR Routine 11/13/2024 8:41 AM KAITARA TARAKA BASIC METABOLIC PANEL Routine 11/13/2024 8:41 AM KAITARA TARAKA EGFR Routine 11/12/2024 9:16 AM KAITARA TARAKA LIPID PANEL Routine 11/12/2024 9:16 AM KAITARA TARAKA BASIC METABOLIC PANEL Routine 11/12/2024 9:16 AM KAITARA TARAKA EGFR Routine 11/10/2024 9:44 AM KAITARA TARAKA DIFFERENTIAL AUTO Routine 11/10/2024 9:4 4 AM KAITARA TARAKA COMPREHENSIVE METABOLIC PANEL Routine 11/10/2024 9:44 AM KAITARA TARAKA CBC WITH AUTO DIFFERENTIAL Routine 11/10/2024 9:44 AM KAITARA TARAKA TROPONIN T HIGH-SENSITIVITY 6-HOUR Timed 11/09/2024 9:11 PM KAITARA TARAKA TROPONIN T HIGH-SENSITIVITY 4-HR Timed 11/09/2024 4:40 PM KAITARA TARAKA URINALYSIS, MICROSCOPIC ONLY STAT 11/09/2024 4:05 PM KAITARA TARAKA URINE CULTURE STAT 11/09/2024 4:05 PM KAITARA TARAKA URINALYSIS AND REFLEX TO MICROSCOPIC AND CULTURE STAT 11/09/2024 4:05 PM KAITARA TARAKA SEPSIS LACTATE WITH REFLEX Routine 11/09/2024 3:06 PM KAITARA TARAKA TROPONIN T HIGH-SENSITIVITY 2-HOUR Timed 11/09/2024 3:[address] HEAD WO CONTRAST ED 11/09/2024 2 :25 PM KAITARA TARAKA XR CHEST 1 VIEW ED 11/09/2024 1:43 PM KAITARA TARAKA INFLUENZA A/B, RSV, AND COVID-19 PCR STAT 11/09/2024 1:24 PM KAITARA TARAKA POCT GLUCOSE DEVICE Routine 11/09/2024 1 2:37 PM KAITARA TARAKA TSH STAT 11/09/2024 12:37 PM KAITARA TARAKA EGFR STAT 11/09/2024 12:37 PM KAITARA TARAKA DIFFERENTIAL AUTO STAT 11/09/2024 12: 37 PM KAITARA TARAKA TROPONIN T HIGH-SENSITIVITY SERIES (BASELINE, 2HR, 4HR, 6HR) STAT 11/09/2024 12:37 PM KAITARA TARAKA COMPREHENSIVE METABOLIC PANEL STAT 11/09/2024 12:37 PM KAITARA TARAKA CBC WITH AUTO DIFFERENTIAL STAT 11/09/2024 12:37 PM KAITARA TARAKA ECG 12-LEAD Routine 11/09/2024 12:29 PM KAITARA TARAKA EGFR Routine 11/01/2024 11:40 AM KAITARA TARAKA DIFFERENTIAL AUTO Routine 11/01/2024 11: 40 AM KAITARA TARAKA CBC WITH AUTO DIFFERENTIAL Routine 11/01/2024 11:40 AM KAITARA TARAKA BASIC METABOLIC PANEL Routine 11/01/2024 11:40 AM KAITARA TARAKA EGFR Routine 10/13/2024 10:04 AM KAITARA TARAKA Type 2 diabetes mellitus with diabetic polyneuropathy, without long-term current use of insulin (HCC) HEMOGLOBIN A1C Routine 10/13/2024 10:04 AM KAITARA TARAKA Type 2 diabetes mellitus with diabetic polyneuropathy, without long-term current use of insulin (HCC) COMPREHENSIVE METABOLIC PANEL Routine 10/13/2024 10:04 AM KAITARA TARAKA Type 2 diabetes mellitus with diabetic polyneuropathy, without long-term current use of insulin (HCC) LIPID PANEL Routine 10/13/2024 10:04 AM KAITARA TARAKA Type 2 diabetes mellitus with diabetic polyneuropathy, without long-term current use of insulin (HCC) CT HEAD WO CONTRAST ED 09/11/2024 3 :[address] CERVICAL SPINE WO CONTRAST ED 09/11/2024 3:[address] CHEST ABDOMEN PELVIS WO CONTRAST ED 06/07/2024 7:15 PM CDT ALBUMIN CREATININE RATIO, URINE Routine 06/08/2023 9:40 AM CDT Type 2 diabetes mellitus with diabetic polyneuropathy, without long-term current use of insulin (HCC) PSA SCREEN Routine 06/08/2023 9:40 AM CDT Urine frequency DIABETIC EYE EXAM Routine 05/16/2021 HM DIABETES FOOT EXAM Routine 08/04/2019 COLONOSCOPY Routine 05/01/2011 from Last 3 Months or Most Recently Relevant to Health Maintenance Results * eGFR (11/13/2024 8:41 AM KAITARA TARAKA) eGFR 65 >=60 mL/min/1. 73 m2 Comment: Interpretive Data Reference Interval Normal >/= 90 mL/min/1.73m2 Mildly decreased* 60 - 89 mL/min/1.73m2 Mildly to moderately decreased 45 - 59 mL/min/1.73m2 Moderately to severely decreased 30 - 44 mL/min/1.73m2 Severely decreased 15 - 29 mL/min/1.73m2 Kidney Failure < 15 mL/min/1.73m2 *Relative to young adult level Estimated glomerular filtration rate is determined by the 2020 CKD-EPI equation recommended by the National Kidney Foundation (A Unifying Approach to GFR Estimation: Recommendations of the NKF-ASK Task Force on Reassessing the Inclusion of Race in Diagnosing Kidney Disease, JASN 2020). The CKD-EPI equation should not be used for patients with unstable renal function and has not been validated in children and those over 70. Current interpretive data was last reviewed 2021. Blood 11/13/2024 8:41 AM KAITARA TARAKA 11/13/2024 8:53 AM KAITARA TARAKA us Ricky Ross II, MD LAB BLOOD ORDERABLES F inal Result [facility] ([place]) [address] [facility] Department [place] [address] * (ABNORMAL) Basic metabolic panel (11/13/2024 8:41 AM KAITARA TARAKA) Sodium 135 135 - 145 mmol/L Potassium, pl 4.3 3.3 - 4.9 mmol/L [facility] ([place]) Chloride 98 97 - 110 mmol/L [facility] CO2 25 22 - 32 mmol/L [facility] ([place]) Anion gap 12 2 - 15 mmol/L [facility] ([place]) BUN 31(H) 6 - 25 mg/dL [facility] ([place]) Creatinine 1.10 0.80 - 1.30 mg/dL [facility] ([place]) Glucose 110 70 - 199 mg/dL [facility] Comment: Interpretive Data Fasting glucose >/= 126 mg/dl is diagnostic for diabetes. Fasting is defined as no caloric intake for at least 8 hours. Fasting glucose between 100 mg/dl to 125 mg/dl is diagnostic of prediabetes. In a patient with classic symptoms of hyperglycemia or hyperglycemic crisis, a random glucose >/= 200 mg/dl is diagnostic for diabetes. In the absence of unequivocal hyperglycemia, results should be confirmed by repeat testing. The classification and Diagnosis of Diabetes Diabetes Care 202; 46: S19-S40. Current interpretive data was last revised 2022. Calcium 9.2 8.5 - 10.3 mg/dL [facility] ([place]) Blood 11/13/2024 8:41 AM KAITARA TARAKA 11/13/2024 8:53 AM KAITARA TARAKA us Ricky Ross II, MD LAB BLOOD ORDERABLES F inal Result [facility] ([place]) [address] [facility] [place] [address] * eGFR (11/12/2024 9:16 AM KAITARA TARAKA) eGFR 67 >=60 mL/min/1. 73 m2 Comment: Interpretive Data Reference Interval Normal >/= 90 mL/min/1.73m2 Mildly decreased* 60 - 89 mL/min/1.73m2 Mildly to moderately decreased 45 - 59 mL/min/1.73m2 Moderately to severely decreased 30 - 44 mL/min/1.73m2 Severely decreased 15 - 29 mL/min/1.73m2 Kidney Failure < 15 mL/min/1.73m2 *Relative to young adult level Estimated glomerular filtration rate is determined by the 2020 CKD-EPI equation recommended by the National Kidney Foundation (A Unifying Approach to GFR Estimation: Recommendations of the NKF-ASK Task Force on Reassessing the Inclusion of Race in Diagnosing Kidney Disease, JASN 2020). The CKD-EPI equation should not be used for patients with unstable renal function and has not been validated in children and those over 70. Current interpretive data was last reviewed 2021. Blood 11/12/2024 9:16 AM KAITARA TARAKA 11/12/2024 9:48 AM KAITARA TARAKA us Ricky Ross II, MD LAB BLOOD ORDERABLES F inal Result [facility] ([place]) 1 [facility] [place] [address] * (ABNORMAL) Lipid panel (11/12/2024 9:16 AM KAITARA TARAKA) Cholesterol 167 30 - 199 mg/dL Comment: Interpretive Data Ages < or = 19 years Acceptable: <170 mg/dL Borderline high: 170-199 mg/dL High: >or= 200 mg/dL Ages > or = 20 years Desirable: <200 mg/dL Borderline high: 200-239 mg/dL High: >or= 240 mg/dL Literature References: 1. Expert Panel on Integrated Guidelines for Cardiovascular Health and Risk Reduction in Children and Adolescents. Pediatrics 2011;128:S213 2. NCEP Expert Panel. Circulation 2004;110:227 Current Interpretive Data was last revised on 2018. Triglycerides 131 <=149 mg/dL KAVITA AGUILAR ([place]) Comment: Interpretive Data Ages < or = 9 years Acceptable: <75 mg/dL Borderline high: 75-99 mg/dL High: >or= 100 mg/dL Ages 10 to 20 years Acceptable: <90 mg/dL Borderline high: 90-129 mg/dL High: >or= 130 mg/dL Ages > or = 20 years Desirable: <150 mg/dL Borderline high: 150-199 mg/dL High: 200-499 mg/dL Very high: >or= 499 mg/dL Literature References: 1. Expert Panel on Integrated Guidelines for Cardiovascular Health and Risk Reduction in Children and Adolescents. Pediatrics 2011;128:S213 2. NCEP Expert Panel. Circulation 2004;110:227 Current Interpretive Data was last revised on 2018. HDL 28(L) >=40 mg/dL KAVITA HAWLEY [facility] ([place]) Comment: Interpretive Data Ages < or = 19 years Acceptable: >45 mg/dL Borderline low: 40-45 mg/dL Low: <40 mg/dL Ages > or = 20 years Desirable: >or= 60 mg/dL Low: <40 mg/dL Literature References: 1. Expert Panel on Integrated Guidelines for Cardiovascular Health and Risk Reduction in Children and Adolescents. Pediatrics 2011;128:S213 2. NCEP Expert Panel. Circulation 2004;110:227 Current Interpretive Data was last revised on 2018. LDL, calculated 115 <=129 mg/dL [facility] ([place]) Comment: Interpretive Data Ages < or = 19 years Acceptable: <110 mg/dL Borderline high: 110-129 mg/dL High: >or= 130 mg/dL Ages > or = 20 years Optimal: <100 mg/dL Near optimal: 100-129 mg/dL Borderline high: 130-159 mg/dL High: >160 mg/dL Calculated using the Kip LDL-C estimating equation. This equation was implemented on 2024. Prior to this date LDL-C was estimated using the Friedewald equation. Literature References: 1. Expert Panel on Integrated Guidelines for Cardiovascular Health and Risk Reduction in Children and Adolescents. Pediatrics 2011;128:S213 2. NCEP Expert Panel. Circulation 2004;110:227 3. Kip Ivory et al. BRONSON Cardiol. 2020 January 18;5(5):540-548. doi: 10.1001/jamacardio.2020.0013 Current Interpretive Data was last revised on 2024. Non-HDL Cholesterol 139 mg/dL KAVITA AGUILAR ([place]) Comment: Interpretive Data Ages < or = 19 years Acceptable: <120 mg/dL Borderline high: 120-144 mg/dL High: >145 mg/dL Ages > or = 20 years When triglycerides are >200 mg/dL, Non-HDL cholesterol is a secondary target of therapy with treatment goals that are 30 mg/dL greater than the LDL cholesterol target. Literature References: 1. Expert Panel on Integrated Guidelines for Cardiovascular Health and Risk Reduction in Children and Adolescents. Pediatrics 2011;128:S213 2. NCEP Expert Panel. Circulation 2004;110:227 Current Interpretive Data was last revised on 2018. Chol/HDL ratio 6 [facility] ([place]) Blood 11/12/2024 9:16 AM KAITARA TARAKA 11/12/2024 9:48 AM KAITARA TARAKA us Ricky Ross II, MD LAB BLOOD ORDERABLES F inal Result KAVITA AGUILAR ([place]) 1 [facility] Department of Laboratories [place], [place] [id number] * (ABNORMAL) Basic metabolic panel (11/12/2024 9:16 AM KAITARA TARAKA) Sodium 137 135 - 145 mmol/L Potassium, pl 4.5 3.3 - 4.9 mmol/L [facility] ([place]) Chloride 100 97 - 110 mmol/L [facility] ([place]) CO2 25 22 - 32 mmol/L [facility] ([place]) Anion gap 12 2 - 15 mmol/L [facility] ([place]) BUN 27(H) 6 - 25 mg/dL [facility] ([place]) Creatinine 1.07 0.80 - 1.30 mg/dL [facility] ([place]) Glucose 93 70 - 199 mg/dL [facility] ([place]) Comment: Interpretive Data Fasting glucose >/= 126 mg/dl is diagnostic for diabetes. Fasting is defined as no caloric intake for at least 8 hours. Fasting glucose between 100 mg/dl to 125 mg/dl is diagnostic of prediabetes. In a patient with classic symptoms of hyperglycemia or hyperglycemic crisis, a random glucose >/= 200 mg/dl is diagnostic for diabetes. In the absence of unequivocal hyperglycemia, results should be confirmed by repeat testing. The classification and Diagnosis of Diabetes Diabetes Care 2021; 46: S19-S40. Current interpretive data was last revised 2022. Calcium 9.1 8.5 - 10.3 mg/dL [facility] ([place]) Blood 11/12/2024 9:16 AM KAITARA TARAKA 11/12/2024 9:48 AM KAITARA TARAKA us Ricky Ross II, MD LAB BLOOD ORDERABLES F inal Result [facility] ([place]) 1 [facility] Department [place] [address] * eGFR (11/10/2024 9:44 AM KAITARA TARAKA) eGFR 72 >=60 mL/min/1. 73 m2 Comment: Interpretive Data Reference Interval Normal >/= 90 mL/min/1.73m2 Mildly decreased* 60 - 89 mL/min/1.73m2 Mildly to moderately decreased 45 - 59 mL/min/1.73m2 Moderately to severely decreased 30 - 44 mL/min/1.73m2 Severely decreased 15 - 29 mL/min/1.73m2 Kidney Failure < 15 mL/min/1.73m2 *Relative to young adult level Estimated glomerular filtration rate is determined by the 2020 CKD-EPI equation recommended by the National Kidney Foundation (A Unifying Approach to GFR Estimation: Recommendations of the NKF-ASK Task Force on Reassessing the Inclusion of Race in Diagnosing Kidney Disease, JASN 2020). The CKD-EPI equation should not be used for patients with unstable renal function and has not been validated in children and those over 70. Current interpretive data was last reviewed 2021. Blood 11/10/2024 9:44 AM KAITARA TARAKA 11/10/2024 9:55 AM KAITARA TARAKA us Pricilla Ramírez MD LAB BLOOD ORDERABLES Denice pendleton Result [facility] ([place]) 1 [facility] Department [place] [address] * Differential, auto (11/10/2024 9:44 AM KAITARA TARAKA) Neutrophil abs 6.2 1.5 - 6.5 K/cumm Imm gran abs 0.0 0.0 - 0.1 K/cumm [facility] ([place]) Lymphocyte abs 1.8 0.8 - 3.3 K/cumm [facility] ([place]) Monocyte abs 0.8 0.2 - 0.8 K/cumm [facility] ([place]) Eosinophil abs 0.3 0.0 - 0.5 K/cumm [facility] ([place]) Basophil abs 0.1 0.0 - 0.1 K/cumm [facility] ([place]) Neutrophil pct 68.1 % [facility] ([place]) Comment: Interpretive Data Percent cell count reference ranges are not reported, since discordance with absolute values may lead to misinterpretation of CBC data. Current Interpretive Data was last revised on 2017. Imm gran pct 0.2 % [facility] ([place]) Comment: Interpretive Data Percent cell count reference ranges are not reported, since discordance with absolute values may lead to misinterpretation of CBC data. Current Interpretive Data was last revised on 2017. Lymphocyte pct 19.5 % [facility] ([place]) Comment: Interpretive Data Percent cell count reference ranges are not reported, since discordance with absolute values may lead to misinterpretation of CBC data. Current Interpretive Data was last revised on 2017. Monocyte pct 8.2 % [facility] ([place]) Comment: Interpretive Data Percent cell count reference ranges are not reported, since discordance with absolute values may lead to misinterpretation of CBC data. Current Interpretive Data was last revised on 2017. Eosinophil pct 3.2 % [facility] ([place]) Comment: Interpretive Data Percent cell count reference ranges are not reported, since discordance with absolute values may lead to misinterpretation of CBC data. Current Interpretive Data was last revised on 2017. Basophil pct 0.8 % [facility] ([place]) Comment: Interpretive Data Percent cell count reference ranges are not reported, since discordance with absolute values may lead to misinterpretation of CBC data. Current Interpretive Data was last revised on 2017. Blood 11/10/2024 9:44 AM KAITARA TARAKA 11/10/2024 9:55 AM KAITARA TARAKA Pricilla Ramírez MD LAB BLOOD ORDERABLES Denice l Result [facility] ([place]) 1 [facility] Department [place] [address] * (ABNORMAL) CBC with auto differential (11/10/2024 9:44 AM KAITARA TARAKA) WBC 9.1 3.8 - 9.9 K/cumm Hgb 14.1 13.0 - 17.5 g/dL [facility] ([place]) Hct 41.9 38.9 - 50.3 % [facility] ([place]) Plt 245 150 - 400 K/cumm [facility] ([place]) MPV 9.0(L) 9.1 - 12.3 fL [facility] ([place]) RBC 4.46 4.30 - 5.80 M/cumm [facility] ([place]) MCV 93.9 81.3 - 96.4 fL [facility] ([place]) MCH 31.6 27.1 - 33.3 pg [facility] ([place]) MCHC 33.7 32.3 - 35.7 g/dL [facility] ([place]) RDW CV 14.0 11.1 - 14.9 % [facility] ([place]) RDW SD 48.3(H) 35.7 - 48.1 fL [facility] ([place]) NRBC abs 0.00 0.00 - 0.01 K/cumm [facility] ([place]) Blood 11/10/2024 9:44 AM KAITARA TARAKA 11/10/2024 9:55 AM KAITARA TARAKA Pricilla Ramírez MD LAB BLOOD ORDERABLES Denice pendleton Result [facility] ([place]) 1 [facility] Department [place] [address] * Comprehensive metabolic panel (11/10/2024 9:44 AM KAITARA TARAKA) Sodium 136 135 - 145 mmol/L Potassium, pl 4.2 3.3 - 4.9 mmol/L [facility] ([place]) Chloride 98 97 - 110 mmol/L [facility] ([place]) CO2 26 22 - 32 mmol/L [facility] ([place]) Anion gap 12 2 - 15 mmol/L [facility] ([place]) BUN 24 6 - 25 mg/dL [facility] Creatinine 1.00 0.80 - 1.30 mg/dL [facility] ([place]) Glucose 93 70 - 199 mg/dL [facility] ([place]) Comment: Interpretive Data Fasting glucose >/= 126 mg/dl is diagnostic for diabetes. Fasting is defined as no caloric intake for at least 8 hours. Fasting glucose between 100 mg/dl to 125 mg/dl is diagnostic of prediabetes. In a patient with classic symptoms of hyperglycemia or hyperglycemic crisis, a random glucose >/= 200 mg/dl is diagnostic for diabetes. In the absence of unequivocal hyperglycemia, results should be confirmed by repeat testing. The classification and Diagnosis of Diabetes Diabetes Care 2021; 46: S19-S40. Current interpretive data was last revised 2022. Calcium 9.0 8.5 - 10.3 mg/dL [facility] ([place]) Bilirubin, total 0.4 0.1 - 1.2 mg/dL [facility] ([place]) Protein, pl 6.6 6.5 - 8.5 g/dL [facility] ([place]) Albumin 3.8 3.5 - 5.0 g/dL [facility] ([place]) Alk phos 85 40 - 130 Units/L [facility] ([place]) ALT 21 7 - 55 Units/L [facility] ([place]) AST 21 10 - 50 Units/L [facility] ([place]) Blood 11/10/2024 9:44 AM KAITARA TARAKA 11/10/2024 9:55 AM KAITARA TARAKA Pricilla Ramírez MD LAB BLOOD ORDERABLES Denice l Result KAVITA JEFF ([place]) [address] [place] [address] [place] [address] * (ABNORMAL) Troponin T high-sensitivity 6-hour (11/09/2024 9:11 PM KAITARA TARAKA) Trop T hs 28(H) <=22 ng/L Comment: Interpretive Data For further hscTnT resources including the diagnostic algorithm and an aid in interpretation, copy and paste this link: https://nrl.testcatalog.org/show/hsTrop Current Interpretive Data last revised 2020. Trop T hs delta See Comment ng/L CE RNWILL AGUILAR ([place]) Comment:Inappropriate collec tion time to report a delta. Trop T hs pct delta See Comment % [facility] ([place]) Comment:Inappropriate collec tion time to report a delta. Trop T hs interp See Comment C ERNWILL AGUILAR ([place]) Comment:Inappropriate collec tion time to report a delta. Blood 11/09/2024 9:11 PM KAITARA TARAKA 11/09/2024 9:13 PM KAITARA TARAKA Pricilla Ramírez MD LAB BLOOD ORDERABLES Denice l Result KAVITA AGUILAR ([place]) 1 [facility] [place] [address] * (ABNORMAL) Troponin T high-sensitivity 4-hour (11/09/2024 4:40 PM KAITARA TARAKA) Trop T hs 25(H) <=22 ng/L Comment: Interpretive Data For further hscTnT resources including the diagnostic algorithm and an aid in interpretation, copy and paste this link: https://nrl.testcatalog.org/show/hsTrop Current Interpretive Data last revised 2020. Trop T hs delta -5 ng/L [facility] ([place]) Trop T hs interp Equivocal [facility] ([place]) Blood 11/09/2024 4:40 PM KAITARA TARAKA 11/09/2024 4:44 PM KAITARA TARAKA Pricilla Ramírez MD LAB BLOOD ORDERABLES Denice pendleton Result [facility] ([place]) 1 [facility] Department [place] [address] * (ABNORMAL) Urinalysis reflex to microscopic and culture Urine (11/09/2024 4:05 PM KAITARA TARAKA) Color, ur Yellow Yellow Clarity, ur Clear Clear [facility] ([place]) Specific gravity, ur 1.019 1.003 - 1.030 [facility] ([place]) pH, urine 6.5 [facility] ([place]) Comment: Interpretive Data U rine pH is affected by diet, medications, systemic acid-base disturbances, and renal tubular function. pH may affect urinary stone formation. For example, urine pH below 6.0 may help reduce the tendency for calcium phosphate stones and pH greater than 6.0 may reduce the tendency for uric acid stone formation. Source: [facility] Current Interpretive Data was last revised on 2017 Protein, ur ql Trace Negative [facility] ([place]) Glucose, ur ql Negative Negative [facility] ([place]) Ketones, ur 1+(A) Negative [facility] ([place]) Bilirubin, ur Negative Negative [facility] ([place]) Blood, ur Negative Negative [facility] ([place]) Urobilinogen, ur <2.0 <2.0 mg/dL [facility] ([place]) Nitrite, ur Negative Negative [facility] ([place]) Leukocyte esterase, ur 2+(A) Negative [facility] ([place]) UA reflex comment Reflex to microscopic UA will be performed. [facility] ([place]) Urine 11/09/2024 4:05 PM KAITARA TARAKA 11/09/2024 4:13 PM KAITARA TARAKA Pricilla Ramírez MD LAB MICROBIOLOGY - GENERA L ORDERABLES Final Result Performing Organization Address [facility] Co de Phone Number [facility]ITA [facility] ([place]) 1 [facility] [place] [address] * (ABNORMAL) Urinalysis, microscopic only (11/09/2024 4:05 PM KAITARA TARAKA) WBC, ur 11-20(A) 0 - 5 /HPF RBC, ur 0-2 0 - 2 /HPF [facility] ([place]) Epithelial cells, squamous, ur 1-5 0 - 5 /HPF [facility] ([place]) Mucous, ur Present(A) [facility]ER A ([place]) Hyaline casts, ur 6-10 0 - 10 /LPF [facility]EROTONIEL AGU[facility] ([place]) Culture Reflex Comment Reflex to urine culture will be performed. KAVITA AGUILAR ([place]) Urine 11/09/2024 4:05 PM KAITARA TARAKA 11/09/2024 4:13 PM KAITARA TARAKA Pricilla Ramírez MD LAB URINE ORDERABLES Denice l Result Performing Organization Address [facility] Co de Phone Number [facility] ([place]) 1 [facility] [place] [address] * Urine culture Urine (11/09/2024 4:05 PM KAITARA TARAKA) Report Final Report: Less than 100,000 colonies/mL (clinically insignificant growth based on current clinical standards) Comment:Testing performed by : [facility], [address] [facility], [place]., [address] Organism (CLINICALLY INSIGNIFICANT GROWTH [facility] ([place]) Urine 11/09/2024 4:05 PM KAITARA TARAKA 11/09/2024 6:13 PM KAITARA TARAKA Narrative [facility] ([place]) - 11/10/2024 8:12 PM KAITARA TARAKA Urine culture reflexed based upon urinalysis results. Testing performed by [facility] ([phone]) us Pricilla Ramírez MD LAB MICROBIOLOGY - GENERA L ORDERABLES Final Result Performing Organization Address City/[facility]/ZIP Co de Phone Number KAVITA AGUILAR ([place]) 1 [place] [address] * (ABNORMAL) Troponin T high-sensitivity 2-hour (11/09/2024 3:06 PM KAITARA TARAKA) Trop T hs 28(H) <=22 ng/L Comment: Interpretive Data For further hscTnT resources including the diagnostic algorithm and an aid in interpretation, copy and paste this link: https://nrl.testcatalog.org/show/hsTrop Current Interpretive Data last revised 2020. Trop T hs delta -2 ng/L [facility] ([place]) Trop T hs interp Insignificant [facility] ([place]) Blood 11/09/2024 3:06 PM KAITARA TARAKA 11/09/2024 3:09 PM KAITARA TARAKA us Pricilla Ramírez MD LAB BLOOD ORDERABLES Denice l Result Performing Organization Address City/[facility]/ZIP Co de Phone Number KAVITA AGUILAR ([place]) 1 [facility] [place] [address] * Sepsis Lactate w/ Reflex (11/09/2024 3:06 PM KAITARA TARAKA) Sepsis Lactate 1.7 0.7 - 2.0 mmol/L Blood 11/09/2024 3:06 PM KAITARA TARAKA 11/09/2024 3:09 PM KAITARA TARAKA us Pricilla Ramírez MD LAB BLOOD ORDERABLES Denice l Result Performing Organization Address City/[facility]/ZIP Co de Phone Number KAVITA AGUILAR ([place]) 1 [facility] [place] [address] * CT Head WO Contrast (11/09/2024 2:25 PM KAITARA TARAKA) Anatomical Region Laterality Modality Head and Neck N/A Computed Tomogra phy 11/09/2024 2:42 PM KAITARA TARAKA Narrative 11/09/2024 2:45 PM KAITARA TARAKA EXAM DESCRIPTION: CT HEAD WO CONTRAST REASON FOR STUDY: Altered mental status today TECHNIQUE: Axial images acquired through the brain without intravenous contrast. Images stored on PACS. Automated exposure control was used as a dose optimization technique for this examination. COMPARISON: September 11, 2024 FINDINGS: BRAIN: No hemorrhage, edema or mass effect. No recent infarct. 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 EXTRA-AXIAL SPACES: No fluid collections. No masses. The CSF spaces are prominent consistent with moderate generalized atrophy. CALVARIUM: No fracture. SINUSES/MASTOIDS: There is mucosal thickening/opacification of nearly all the ethmoids. Mild mucosal thickening in the left maxillary sinus. Minimal on the right. There is mucosal thickening and opacification in the frontal sinuses. ORBITS: There has been right cataract removal. OTHER: No other significant abnormality. IMPRESSION: No acute intracranial findings. THIS IS AN ELECTRONICALLY VERIFIED FINAL REPORT 11/09/2024 2:45 PM - Electronically signed by Chantale Van M.D. LD: MARGARET Report ID: [id number] Reading Location: [id number] Procedure Note Chantale Van MD - 11/09/2024 EXAM DESCRIPTION: CT HEAD WO CONTRAST REASON FOR STUDY: Altered mental status today TECHNIQUE: Axial images acquired through the brain without intravenous contrast. Images stored on PACS. Automated exposure control was used asa dose optimization technique for this examination. COMPARISON: September 11, 2024 FINDINGS: BRAIN: No hemorrhage, edema or mass effect. No recent infarct. 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 EXTRA-AXIAL SPACES: No fluid collections. No masses. The CSF spacesare prominent consistent with moderate generalized atrophy. CALVARIUM: No fracture. SINUSES/MASTOIDS: There is mucosal thickening/opacification of nearlyall the ethmoids. Mild mucosal thickening in the left maxillary sinus.Minimal on the right. There is mucosal thickening and opacification in thefrontal sinuses. ORBITS: There has been right cataract removal. OTHER: No other significant abnormality. IMPRESSION: No acute intracranial findings. THIS IS AN ELECTRONICALLY VERIFIED FINAL REPORT 11/09/2024 2:45 PM - Electronically signed by Chantale Van M.D. LD: MARGARET Report ID: [id number] Reading Location: [id number] Pricilla Ramírez MD IMG CT PROCEDURES Final R esult * XR Chest 1 Vw Portable (11/09/2024 1:43 PM KAITARA TARAKA) Anatomical Region Laterality Modality Body, Chest N/A Computed Radiogr aphy 11/09/2024 2:16 PM KAITARA TARAKA Narrative 11/09/2024 2:20 PM KAITARA TARAKA EXAM DESCRIPTION: XR CHEST 1 VIEW REASON FOR STUDY: ms changes Patient has Alzheimer's and has a villous of [facility]. A month ago taken off almost all of his medicine. He has since been restless and agitated. He was prescribed Zoloft and Ativan. Then he was sleeping all the time per his she states today they called her and told her he was more difficult to arouse so they sent him in for evaluation. EMS reported that wants the patient was out in the cold he woke up. Here in the ER the patient is sleeping but arousable. TECHNIQUE: 1 radiographic view(s) of the chest. COMPARISON: 10/04/2020 FINDINGS: LUNGS: Dense left retrocardiac opacity related to the known large hiatal hernia. No evidence of acute airspace disease. No large pleural effusion. No pneumothorax. HEART/MEDIASTINUM: Cardiac silhouette normal in size. Mediastinal and hilar contours appear normal. LINES/TUBES: None. BONES: No acute osseous abnormality. IMPRESSION: No acute cardiopulmonary abnormality. THIS IS AN ELECTRONICALLY VERIFIED FINAL REPORT 11/09/2024 2:20 PM - Electronically signed by Titi Esteban M.D. KR: KIMANI Report ID: [id number] Reading Location: [id number] Procedure Note Titi Esteban MD - 11/09/2024 EXAM DESCRIPTION: XR CHEST 1 VIEW REASON FOR STUDY: ms emily Patient has Alzheimer's and has a villous of Aimee Holder. A month agotaken off almost all of his medicine. He has since been restless and agitated.He was prescribed Zoloft and Ativan. Then he was sleeping all the time perhis she states today they called her and told her he was more difficultto arouse so they sent him in for evaluation. EMS reported that wants the patient was out in the cold he woke up. Here in the ER the patient is sleeping but arousable. TECHNIQUE: 1 radiographic view(s) of the chest. COMPARISON: 10/04/2020 FINDINGS: LUNGS: Dense left retrocardiac opacity related to the known large hiatal hernia. No evidence of acute airspace disease. No large pleuraleffusion. No pneumothorax. HEART/MEDIASTINUM: Cardiac silhouette normal in size. Mediastinal andhilar contours appear normal. LINES/TUBES: None. BONES: No acute osseous abnormality. IMPRESSION: No acute cardiopulmonary abnormality. THIS IS AN ELECTRONICALLY VERIFIED FINAL REPORT 11/09/2024 2:20 PM - Electronically signed by Titi Esteban M.D. KR: KIMANI Report ID: [id number] Reading Location: [place] [id number] Pricilla Ramírez MD IMG XR PROCEDURES Final R esult * (ABNORMAL) Influenza A/B, RSV, and COVID-19 PCR Nasopharyngeal (11/09/2024 1:24 PM KAITARA TARAKA) COVID-19 RNA Positive(A) Negative Influenza A RNA Negative Negative [facility] ([place]) Influenza B RNA Negative Negative [facility] ([place]) RSV RNA Negative Negative [facility] ([place]) Comment: Interpretive data: Testing performed by [facility]. This test is performed using the TapFwd Xpert Xpress CoV-2/Flu/RSV plus assay. This is a multiplex, real- time reverse transcriptase PCR assay intended for the qualitative detection of nucleic acid from SARS-CoV-2, influenza A, influenza B, and respiratory syncytial virus. This assay has been cleared by the [place] Food and Drug administration. The performance characteristics have been verified by the [facility]. Results must be considered in the clinical context, and a negative result does not rule out infection. Interpretive Data last revised 2023 Nasopharyngeal 11/09/2024 1: 24 PM KAITARA TARAKA 11/09/2024 1:40 PM KAITARA TARAKA Narrative [facility] ([place]) - 11/09/2024 2:24 PM KAITARA TARAKA Is the Patient experiencing symptoms consistent with COVID?->Yes Pricilla Ramírez MD LAB MICROBIOLOGY - GENERA L ORDERABLES Final Result KAVITA AGUILAR ([place]) 1 [facility] [place] [address] * (ABNORMAL) Troponin T high-sensitivity series (baseline, 2hr, 4hr, 6hr) (11/09/2024 12:37 PM KAITARA TARAKA) Trop T hs 30(H) <=22 ng/L Comment: Interpretive Data For further hscTnT resources including the diagnostic algorithm and an aid in interpretation, copy and paste this link: https://nrl.testcatalog.org/show/hsTrop Current Interpretive Data last revised 2020. Blood 11/09/2024 12:3 7 PM KAITARA TARAKA 11/09/2024 12:41 PM KAITARA TARAKA Pricilla Ramírez MD LAB BLOOD ORDERABLES Denice l Result KAVITA AGUILAR ([place]) 1 [facility] [place] [address] * (ABNORMAL) eGFR (11/09/2024 12:37 PM KAITARA TARAKA) eGFR 40(L) >=60 mL/min/1. 73 m2 Comment: Interpretive Data Reference Interval Normal >/= 90 mL/min/1.73m2 Mildly decreased* 60 - 89 mL/min/1.73m2 Mildly to moderately decreased 45 - 59 mL/min/1.73m2 Moderately to severely decreased 30 - 44 mL/min/1.73m2 Severely decreased 15 - 29 mL/min/1.73m2 Kidney Failure < 15 mL/min/1.73m2 *Relative to young adult level Estimated glomerular filtration rate is determined by the 2020 CKD-EPI equation recommended by the National Kidney Foundation (A Unifying Approach to GFR Estimation: Recommendations of the NKF-ASK Task Force on Reassessing the Inclusion of Race in Diagnosing Kidney Disease, JASN 2020). The CKD-EPI equation should not be used for patients with unstable renal function and has not been validated in children and those over 70. Current interpretive data was last reviewed 2021. Blood 11/09/2024 12:3 7 PM KAITARA TARAKA 11/09/2024 12:41 PM KAITARA TARAKA us Pricilla Ramírez MD LAB BLOOD ORDERABLES Denice pendleton Result [facility] ([place]) 1 [facility] [place] [address] * (ABNORMAL) Differential, auto (11/09/2024 12:37 PM KAITARA TARAKA) Neutrophil abs 6.3 1.5 - 6.5 K/cumm Imm gran abs 0.0 0.0 - 0.1 K/cumm [facility] ([place]) Lymphocyte abs 2.3 0.8 - 3.3 K/cumm [facility] ([place]) Monocyte abs 1.1(H) 0.2 - 0.8 K/cumm [facility] ([place]) Eosinophil abs 0.3 0.0 - 0.5 K/cumm [facility] ([place]) Basophil abs 0.1 0.0 - 0.1 K/cumm [facility] ([place]) Neutrophil pct 62.4 % [facility] ([place] Comment: Interpretive Data Percent cell count reference ranges are not reported, since discordance with absolute values may lead to misinterpretation of CBC data. Current Interpretive Data was last revised on 2017. Imm gran pct 0.4 % [facility] ([place]) Comment: Interpretive Data Percent cell count reference ranges are not reported, since discordance with absolute values may lead to misinterpretation of CBC data. Current Interpretive Data was last revised on 2017. Lymphocyte pct 23.0 % [facility] ([place]) Comment: Interpretive Data Percent cell count reference ranges are not reported, since discordance with absolute values may lead to misinterpretation of CBC data. Current Interpretive Data was last revised on 2017. Monocyte pct 10.8 % [facility] ([place]) Comment: Interpretive Data Percent cell count reference ranges are not reported, since discordance with absolute values may lead to misinterpretation of CBC data. Current Interpretive Data was last revised on 2017. Eosinophil pct 2.7 % [facility] ([place]) Comment: Interpretive Data Percent cell count reference ranges are not reported, since discordance with absolute values may lead to misinterpretation of CBC data. Current Interpretive Data was last revised on 2017. Basophil pct 0.7 % [facility] ([place]) Comment: Interpretive Data Percent cell count reference ranges are not reported, since discordance with absolute values may lead to misinterpretation of CBC data. Current Interpretive Data was last revised on 2017. Blood 11/09/2024 12:3 7 PM KAITARA TARAKA 11/09/2024 12:41 PM KAITARA TARAKA us Pricilla Ramírez MD LAB BLOOD ORDERABLES Denice pendleton Result [facility] ([place]) 1 [facility] [place] [address] * POCT glucose (11/09/2024 12:37 PM KAITARA TARAKA) Glucose, POC 84 70 - 199 mg/dL Blood 11/09/2024 12:3 7 PM KAITARA TARAKA 11/09/2024 12:37 PM KAITARA TARAKA Pricilla Ramírez MD LAB POCT ORDERABLES - DEV ICE Final Result [facility] ([place]) 1 [facility] [place] [address] * (ABNORMAL) CBC with auto differential (11/09/2024 12:37 PM KAITARA TARAKA) WBC 10.0(H) 3.8 - 9.9 K/cumm Hgb 14.3 13.0 - 17.5 g/dL [facility] ([place]) Hct 42.6 38.9 - 50.3 % [facility] ([place]) Plt 278 150 - 400 K/cumm [facility] ([place]) MPV 9.4 9.1 - 12.3 fL [facility] ([place]) RBC 4.54 4.30 - 5.80 M/cumm [facility] ([place]) MCV 93.8 81.3 - 96.4 fL [facility] ([place]) MCH 31.5 27.1 - 33.3 pg [facility] ([place]) MCHC 33.6 32.3 - 35.7 g/dL [facility] ([place]) RDW CV 14.2 11.1 - 14.9 % [facility] ([place]) RDW SD 48.9(H) 35.7 - 48.1 fL [facility] ([place]) NRBC abs 0.00 0.00 - 0.01 K/cumm [facility] ([place]) Blood 11/09/2024 12:3 7 PM KAITARA TARAKA 11/09/2024 12:41 PM KAITARA TARAKA Pricilla Ramírez MD LAB BLOOD ORDERABLES Denice l Result [facility] ([place]) 1 [facility] [place] [address] * TSH (11/09/2024 12:37 PM KAITARA TARAKA) Thyroid Stimulating Hormone 1.08 0.30 - 4.20 mcIUnit/mL Blood 11/09/2024 12:3 7 PM KAITARA TARAKA 11/09/2024 1:40 PM KAITARA TARAKA Pricilla Ramírez MD LAB BLOOD ORDERABLES Denice l Result [facility] ([place]) 1 [facility] Department [place] [address] * (ABNORMAL) Comprehensive metabolic panel (11/09/2024 12:37 PM KAITARA TARAKA) Sodium 136 135 - 145 mmol/L Potassium, pl 4.5 3.3 - 4.9 mmol/L [facility] ([place]) Chloride 97 97 - 110 mmol/L [facility] ([place]) CO2 30 22 - 32 mmol/L [facility] ([place]) Anion gap 9 2 - 15 mmol/L [facility] BUN 30(H) 6 - 25 mg/dL [facility] Creatinine 1.65(H) 0.80 - 1.30 mg/dL [facility] ([place]) Glucose 88 70 - 199 mg/dL [facility] Comment: Interpretive Data Fasting glucose >/= 126 mg/dl is diagnostic for diabetes. Fasting is defined as no caloric intake for at least 8 hours. Fasting glucose between 100 mg/dl to 125 mg/dl is diagnostic of prediabetes. In a patient with classic symptoms of hyperglycemia or hyperglycemic crisis, a random glucose >/= 200 mg/dl is diagnostic for diabetes. In the absence of unequivocal hyperglycemia, results should be confirmed by repeat testing. The classification and Diagnosis of Diabetes Diabetes Care 2021; 46: S19-S40. Current interpretive data was last revised 2022. Calcium 9.4 8.5 - 10.3 mg/dL [facility] ([place]) Bilirubin, total 0.3 0.1 - 1.2 mg/dL [facility] ([place]) Protein, pl 7.1 6.5 - 8.5 g/dL [facility] ([place]) Albumin 4.1 3.5 - 5.0 g/dL [facility] ([place]) Alk phos 87 40 - 130 Units/L [facility] ([place]) ALT 22 7 - 55 Units/L [facility] ([place]) AST 20 10 - 50 Units/L [facility] ([place]) Blood 11/09/2024 12:3 7 PM KAITARA TARAKA 11/09/2024 12:41 PM KAITARA TARAKA Pricilla Ramírez MD LAB BLOOD ORDERABLES Denice l Result Performing Organization Address City/[facility]/ZIP Co de Phone Number [facility] ([place]) 1 [facility] [place] [address] * ECG 12 lead (11/09/2024 12:29 PM KAITARA TARAKA) 11/09/2024 12:2 9 PM KAITARA TARAKA Narrative [facility] 11/10/2024 6:43 AM KAITARA TARAKA Vent Rate: 65 bpm RR Interval: 910 msec ND Interval: 174 msec QRS Duration: 124 msec QT Interval: 397 msec QTC Interval: 409 msec P-R-T Perkins: 46 - 56 - 14 degrees IMPRESSION: SINUS RHYTHM 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 73 m2 Comment: Interpretive Data Reference Interval Normal >/= 90 mL/min/1.73m2 Mildly decreased* 60 - 89 mL/min/1.73m2 Mildly to moderately decreased 45 - 59 mL/min/1.73m2 Moderately to severely decreased 30 - 44 mL/min/1.73m2 Severely decreased 15 - 29 mL/min/1.73m2 Kidney Failure < 15 mL/min/1.73m2 *Relative to young adult level Estimated glomerular filtration rate is determined by the 2020 CKD-EPI equation recommended by the National Kidney Foundation (A Unifying Approach to GFR Estimation: Recommendations of the NKF-ASK Task Force on Reassessing the Inclusion of Race in Diagnosing Kidney Disease, JASN 202). The CKD-EPI equation should not be used for patients with unstable renal function and has not been validated in children and those over 70. Current interpretive data was last reviewed 2021. Blood 11/01/2024 11:4 0 AM KAITARA TARAKA 11/01/2024 3:38 PM KAITARA TARAKA us Notinfile Unknown LAB BLOOD ORDERABLES Final Res ult [facility] [address] Department [place] [address] * (ABNORMAL) Differential, auto (11/01/2024 11:40 AM KAITARA TARAKA) Neutrophil abs 3.7 1.5 - 6.5 K/cumm Imm gran abs 0.1 0.0 - 0.1 K/cumm [facility] Lymphocyte abs 1.8 0.8 - 3.3 K/cumm [facility] Monocyte abs 1.0(H) 0.2 - 0.8 K/cumm [facility] Eosinophil abs 0.4 0.0 - 0.5 K/cumm [facility] Basophil abs 0.1 0.0 - 0.1 K/cumm [facility] Neutrophil pct 53.0 % [facility] Comment: Interpretive Data Percent cell count reference ranges are not reported, since discordance with absolute values may lead to misinterpretation of CBC data. Current Interpretive Data was last revised on 2017. Imm gran pct 0.7 % [facility] Comment: Interpretive Data Percent cell count reference ranges are not reported, since discordance with absolute values may lead to misinterpretation of CBC data. Current Interpretive Data was last revised on 2017. Lymphocyte pct 25.0 % [facility] Comment: Interpretive Data Percent cell count reference ranges are not reported, since discordance with absolute values may lead to misinterpretation of CBC data. Current Interpretive Data was last revised on 2017. Monocyte pct 14.6 % [facility] Comment: Interpretive Data Percent cell count reference ranges are not reported, since discordance with absolute values may lead to misinterpretation of CBC data. Current Interpretive Data was last revised on 2017. Eosinophil pct 5.8 % [facility] Comment: Interpretive Data Percent cell count reference ranges are not reported, since discordance with absolute values may lead to misinterpretation of CBC data. Current Interpretive Data was last revised on 2017. Basophil pct 0.9 % [facility] Comment: Interpretive Data Percent cell count reference ranges are not reported, since discordance with absolute values may lead to misinterpretation of CBC data. Current Interpretive Data was last revised on 2017. Blood 11/01/2024 11:4 0 AM KAITARA TARAKA 11/01/2024 3:36 PM KAITARA TARAKA us Notinfile Unknown LAB BLOOD ORDERABLES Final Res ult [facility] [address] Department [place] [address] * (ABNORMAL) CBC with auto differential (11/01/2024 11:40 AM KAITARA TARAKA) WBC 7.0 3.8 - 9.9 K/cumm Hgb 13.9 13.0 - 17.5 g/dL [facility] Hct 43.2 38.9 - 50.3 % [facility] Plt 211 150 - 400 K/cumm [facility] MPV 9.9 9.1 - 12.3 fL [facility] RBC 4.45 4.30 - 5.80 M/cumm [facility] MCV 97.1(H) 81.3 - 96.4 fL [facility] MCH 31.2 27.1 - 33.3 pg [facility] MCHC 32.2(L) 32.3 - 35.7 g/dL [facility] RDW CV 14.4 11.1 - 14.9 % [facility] RDW SD 51.4(H) 35.7 - 48.1 fL [facility] NRBC abs 0.00 0.00 - 0.01 K/cumm [facility] Blood 11/01/2024 11:4 0 AM KAITARA TARAKA 11/01/2024 3:36 PM KAITARA TARAKA us Notinfile Unknown LAB BLOOD ORDERABLES Final Res ult [facility] [address] Department [place] [address] * (ABNORMAL) Basic metabolic panel (11/01/2024 11:40 AM KAITARA TARAKA) Sodium 135 135 - 145 mmol/L Potassium, pl 4.9 3.3 - 4.9 mmol/L [facility] Chloride 96(L) 97 - 110 mmol/L [facility] CO2 28 22 - 32 mmol/L [facility] Anion gap 11 2 - 15 mmol/L [facility] BUN 26(H) 6 - 25 mg/dL [facility] Creatinine 0.96 0.80 - 1.30 mg/dL [facility] Glucose 94 70 - 199 mg/dL [facility] Comment: Interpretive Data Fasting glucose >/= 126 mg/dl is diagnostic for diabetes. Fasting is defined as no caloric intake for at least 8 hours. Fasting glucose between 100 mg/dl to 125 mg/dl is diagnostic of prediabetes. In a patient with classic symptoms of hyperglycemia or hyperglycemic crisis, a random glucose >/= 200 mg/dl is diagnostic for diabetes. In the absence of unequivocal hyperglycemia, results should be confirmed by repeat testing. The classification and Diagnosis of Diabetes Diabetes Care 2021; 46: S19-S40. Current interpretive data was last revised 2022. Calcium 9.4 8.5 - 10.3 mg/dL [facility] Blood 11/01/2024 11:4 0 AM KAITARA TARAKA 11/01/2024 3:35 PM KAITARA TARAKA us Notinfile Unknown LAB BLOOD ORDERABLES Final Res ult [facility] [address] Department [place] [address] * eGFR (10/13/2024 10:04 AM KAITARA TARAKA) eGFR 62 >=60 mL/min/1. 73 m2 Comment: Interpretive Data Reference Interval Normal >/= 90 mL/min/1.73m2 Mildly decreased* 60 - 89 mL/min/1.73m2 Mildly to moderately decreased 45 - 59 mL/min/1.73m2 Moderately to severely decreased 30 - 44 mL/min/1.73m2 Severely decreased 15 - 29 mL/min/1.73m2 Kidney Failure < 15 mL/min/1.73m2 *Relative to young adult level Estimated glomerular filtration rate is determined by the 2020 CKD-EPI equation recommended by the National Kidney Foundation (A Unifying Approach to GFR Estimation: Recommendations of the NKF-ASK Task Force on Reassessing the Inclusion of Race in Diagnosing Kidney Disease, JASN 2020). The CKD-EPI equation should not be used for patients with unstable renal function and has not been validated in children and those over 70. Current interpretive data was last reviewed 2021. Blood 10/13/2024 10:0 4 AM KAITARA TARAKA 10/13/2024 2:12 PM KAITARA TARAKA us Harsha Anand MD LAB BLOOD ORDERABLES Fi nal Result Performing Organization Address City/[facility]/ZIP Co de Phone Number [facility] ([place]) 1 [facility] [place] [address] * (ABNORMAL) Hemoglobin A1c (10/13/2024 10:04 AM KAITARA TARAKA) Hgb A1C 6.1(H) 4.0 - 5.6 % Estimated Average Glucose 128 mg/dL [facility] ([place]) Comment: The ADA recommends reporting an estimated Average Glucose (eAG) with all Hemoglobin A1c results using the equation derived from a study of 507 normal and diabetic adults. Minority populations were underrepresented and children were not included. (Diabetes Care 31:6014-9967, 2008). The eAG is not equivalent to a fasting glucose. Blood 10/13/2024 10:0 4 AM KAITARA TARAKA 10/13/2024 2:12 PM KAITARA TARAKA us Harsha Anand MD LAB BLOOD ORDERABLES Fi nal Result [facility] ([place]) 1 [facility] [place] [address] * (ABNORMAL) Lipid panel (10/13/2024 10:04 AM KAITARA TARAKA) Cholesterol 124 30 - 199 mg/dL Comment: Interpretive Data Ages < or = 19 years Acceptable: <170 mg/dL Borderline high: 170-199 mg/dL High: >or= 200 mg/dL Ages > or = 20 years Desirable: <200 mg/dL Borderline high: 200-239 mg/dL High: >or= 240 mg/dL Literature References: 1. Expert Panel on Integrated Guidelines for Cardiovascular Health and Risk Reduction in Children and Adolescents. Pediatrics 2011;128:S213 2. NCEP Expert Panel. Circulation 2004;110:227 Current Interpretive Data was last revised on 2018. Triglycerides 126 <=149 mg/dL [facility] ([place]) Comment: Interpretive Data Ages < or = 9 years Acceptable: <75 mg/dL Borderline high: 75-99 mg/dL High: >or= 100 mg/dL Ages 10 to 20 years Acceptable: <90 mg/dL Borderline high: 90-129 mg/dL High: >or= 130 mg/dL Ages > or = 20 years Desirable: <150 mg/dL Borderline high: 150-199 mg/dL High: 200-499 mg/dL Very high: >or= 499 mg/dL Literature References: 1. Expert Panel on Integrated Guidelines for Cardiovascular Health and Risk Reduction in Children and Adolescents. Pediatrics 2011;128:S213 2. NCEP Expert Panel. Circulation 2004;110:227 Current Interpretive Data was last revised on 2018. HDL 35(L) >=40 mg/dL [facility] ([place]) Comment: Interpretive Data Ages < or = 19 years Acceptable: >45 mg/dL Borderline low: 40-45 mg/dL Low: <40 mg/dL Ages > or = 20 years Desirable: >or= 60 mg/dL Low: <40 mg/dL Literature References: 1. Expert Panel on Integrated Guidelines for Cardiovascular Health and Risk Reduction in Children and Adolescents. Pediatrics 2011;128:S213 2. NCEP Expert Panel. Circulation 2004;110:227 Current Interpretive Data was last revised on 2018. LDL, calculated 66 <=129 mg/dL [facility] ([place]) Comment: Interpretive Data Ages < or = 19 years Acceptable: <110 mg/dL Borderline high: 110-129 mg/dL High: >or= 130 mg/dL Ages > or = 20 years Optimal: <100 mg/dL Near optimal: 100-129 mg/dL Borderline high: 130-159 mg/dL High: >160 mg/dL Calculated using the Kip LDL-C estimating equation. This equation was implemented on 2024. Prior to this date LDL-C was estimated using the Friedewald equation. Literature References: 1. Expert Panel on Integrated Guidelines for Cardiovascular Health and Risk Reduction in Children and Adolescents. Pediatrics 2011;128:S213 2. NCEP Expert Panel. Circulation 2004;110:227 3. Kip Ivory et al. BRONSON Cardiol. 2019January 18;5(5):540-548. doi: 10.1001/[email or web address] Current Interpretive Data was last revised on 2024. Non-HDL Cholesterol 89 mg/dL [facility] ([place]) Comment: Interpretive Data Ages < or = 19 years Acceptable: <120 mg/dL Borderline high: 120-144 mg/dL High: >145 mg/dL Ages > or = 20 years When triglycerides are >200 mg/dL, Non-HDL cholesterol is a secondary target of therapy with treatment goals that are 30 mg/dL greater than the LDL cholesterol target. Literature References: 1. Expert Panel on Integrated Guidelines for Cardiovascular Health and Risk Reduction in Children and Adolescents. Pediatrics 2011;128:S213 2. NCEP Expert Panel. Circulation 2004;110:227 Current Interpretive Data was last revised on 2018. Chol/HDL ratio 4 NICHELLENE Della [facility] ([place]) Blood 10/13/2024 10:0 4 AM KAITARA TARAKA 10/13/2024 2:12 PM KAITARA TARAKA Narrative [facility] ([place]) - 10/13/2024 2:28 PM KAITARA TARAKA Has the patient been fasting for 8 hours or more?->Yes us Harsha Anand MD LAB BLOOD ORDERABLES Fi nal Result [facility] ([place]) 1 [facility] Department [place] [address] * Comprehensive metabolic panel (10/13/2024 10:04 AM KAITARA TARAKA) Sodium 140 135 - 145 mmol/L Potassium, pl 4.6 3.3 - 4.9 mmol/L [facility] ([place]) Chloride 101 97 - 110 mmol/L [facility] ([place]) CO2 28 22 - 32 mmol/L [facility] ([place]) Anion gap 11 2 - 15 mmol/L [facility] ([place]) BUN 13 6 - 25 mg/dL [facility] ([place]) Creatinine 1.14 0.80 - 1.30 mg/dL [facility] ([place]) Glucose 99 70 - 199 mg/dL [facility] ([place]) Comment: Interpretive Data Fasting glucose >/= 126 mg/dl is diagnostic for diabetes. Fasting is defined as no caloric intake for at least 8 hours. Fasting glucose between 100 mg/dl to 125 mg/dl is diagnostic of prediabetes. In a patient with classic symptoms of hyperglycemia or hyperglycemic crisis, a random glucose >/= 200 mg/dl is diagnostic for diabetes. In the absence of unequivocal hyperglycemia, results should be confirmed by repeat testing. The classification and Diagnosis of Diabetes Diabetes Care 202; 46: S19-S40. Current interpretive data was last revised 2022. Calcium 9.7 8.5 - 10.3 mg/dL [facility] ([place]) Bilirubin, total 0.5 0.1 - 1.2 mg/dL [facility] ([place]) Protein, pl 7.2 6.5 - 8.5 g/dL [facility] ([place]) Albumin 4.2 3.5 - 5.0 g/dL [facility] ([place]) Alk phos 96 40 - 130 Units/L [facility] ([place]) ALT 15 7 - 55 Units/L [facility] ([place]) AST 22 10 - 50 Units/L [facility] ([place]) Blood 10/13/2024 10:0 4 AM KAITARA TARAKA 10/13/2024 2:12 PM KAITARA TARAKA Narrative [facility] ([place]) - 10/13/2024 2:28 PM KAITARA TARAKA Has the patient fasted?->Yes us Harsha Anand MD LAB BLOOD ORDERABLES Fi nal Result [facility] ([place]) 1 [facility] [place] [address] * CT Cervical Spine WO Contrast (09/11/2024 3:30 PM KAITARA TARAKA) Anatomical Region Laterality Modality Spine N/A Computed Tomogra phy 09/11/2024 3:39 PM KAITARA TARAKA Narrative 09/11/2024 3:45 PM KAITARA TARAKA EXAM DESCRIPTION: CT HEAD WO CONTRAST; CT CERVICAL SPINE WO CONTRAST REASON FOR STUDY: Fall with closed head injury to include facial ecchymosis. No LOC. No provided cervical spine/neck complaints pursuant to event. No provided past medical or surgical history. Patient on unspecified anticoagulant. TECHNIQUE: Axial images through the head and cervical spine, with sagittal and coronal reformatted images. Automated exposure control was used as a dose optimization technique for this examination. COMPARISON: MRI brain without contrast 06/08/2024; CT head without contrast 06/07/2024; CT head/maxillofacial bones/cervical spine without contrast 08/04/2021. FINDINGS: CT HEAD: BRAIN: No acute intra-axial hemorrhage. No edema, mass effect, midline shift, or herniation. No evidence of acute territorial ischemia or infarct. There is periventricular-subcortical hypoattenuating white matter disease, nonspecific, though likely secondary to chronic microvascular ischemia. EXTRA-AXIAL SPACES: No extra-axial fluid collections. No unenhanced CT evidence of extra-axial mass. There is cerebral and cerebellar volume loss. There is intracranial calcific atherosclerotic disease. CALVARIUM: No acute calvarial fracture. Slight right paramedian frontal scalp contusion. SINUSES/MASTOIDS: Mucosal thickening and dependent fluid level of the visualized maxillary sinuses. Mastoid air cells well-developed and left mastoid air cells well aerated with slight scattered fluid of the dependent right mastoid air cells. ORBITS: No acute abnormality. Right ak chin ocular lens replaced. OTHER: No other significant abnormality. CT CERVICAL SPINE: ALIGNMENT: Alignment and curvature unchanged. VERTEBRAE: No acute fracture. Vertebral body heights unchanged. Spondylosis. DISCS: Multilevel variable loss of intervertebral disc height. HARDWARE: None in the spine. INDIVIDUAL DISC LEVELS: No significant osseous spinal canal; no significant osseous neural foraminal stenosis. UPPER THORACIC: Incompletely imaged. No significant osseous spinal stenosis or osseous neural foraminal stenosis. LUNG APICES: No acute abnormality. NECK SOFT TISSUES: No acute abnormality. OTHER: No other significant findings. IMPRESSION: 1. No acute intracranial process with chronic findings as above. 2. No acute calvarial fracture with soft tissue injury as above. 3. No acute fracture or subluxation of the cervical spine with redemonstration of constellation of spondylolisthesis with straightening of the cervical lordosis, spondylosis, and degenerative disc disease. THIS IS AN ELECTRONICALLY VERIFIED FINAL REPORT 09/11/2024 3:45 PM - Electronically signed by Rhett Griffith M.D. ADALBERTO: ADALBERTO Report ID: [id number] Reading Location: [id number] Procedure Note Rhett Griffith MD - 09/11/2024 EXAM DESCRIPTION: CT HEAD WO CONTRAST; CT CERVICAL SPINE WO CONTRAST REASON FOR STUDY: Fall with closed head injury to include facialecchymosis. No LOC. No provided cervical spine/neck complaints pursuant to event. No provided past medical or surgical history. Patient on unspecified anticoagulant. TECHNIQUE: Axial images through the head and cervical spine, with sagittaland coronal reformatted images. Automated exposure control was used as a dose optimization technique for this examination. COMPARISON: MRI brain without contrast 06/08/2024; CT head withoutcontrast 06/07/2024; CT head/maxillofacial bones/cervical spine without contrast 08/04/2021. FINDINGS: CT HEAD: BRAIN: No acute intra-axial hemorrhage. No edema, mass effect, midlineshift, or herniation. No evidence of acute territorial ischemia or infarct.There is periventricular-subcortical hypoattenuating white matter disease, nonspecific, though likely secondary to chronic microvascular ischemia. EXTRA-AXIAL SPACES: No extra-axial fluid collections. No unenhanced CT evidence of extra-axial mass. There is cerebral and cerebellar volumeloss. There is intracranial calcific atherosclerotic disease. CALVARIUM: No acute calvarial fracture. Slight right paramedian frontal scalp contusion. SINUSES/MASTOIDS: Mucosal thickening and dependent fluid level of the visualized maxillary sinuses. Mastoid air cells well-developed and left mastoid air cells well aerated with slight scattered fluid of thedependent right mastoid air cells. ORBITS: No acute abnormality. Right ak chin ocular lens replaced. OTHER: No other significant abnormality. CT CERVICAL SPINE: ALIGNMENT: Alignment and curvature unchanged. VERTEBRAE: No acute fracture. Vertebral body heights unchanged. Spondylosis. DISCS: Multilevel variable loss of intervertebral disc height. HARDWARE: None in the spine. INDIVIDUAL DISC LEVELS: No significant osseous spinal canal; nosignificant osseous neural foraminal stenosis. UPPER THORACIC: Incompletely imaged. No significant osseous spinalstenosis or osseous neural foraminal stenosis. LUNG APICES: No acute abnormality. NECK SOFT TISSUES: No acute abnormality. OTHER: No other significant findings. IMPRESSION: 1. No acute intracranial process with chronic findings as above. 2. No acute calvarial fracture with soft tissue injury as above. 3. No acute fracture or subluxation of the cervical spine with redemonstration of constellation of spondylolisthesis with straighteningof the cervical lordosis, spondylosis, and degenerative disc disease. THIS IS AN ELECTRONICALLY VERIFIED FINAL REPORT 09/11/2024 3:45 PM - Electronically signed by Rhett Griffith M.D. ADALBERTO: ADALBERTO Report ID: [id number] Reading Location: [id number] Kenneth Hernandez NP IMG CT PROCEDURES Final Res ult * CT Head WO Contrast (09/11/2024 3:30 PM KAITARA TARAKA) Anatomical Region Laterality Modality Head and Neck N/A Computed Tomogra phy 09/11/2024 3:39 PM KAITARA TARAKA Narrative 09/11/2024 3:45 PM KAITARA TARAKA EXAM DESCRIPTION: CT HEAD WO CONTRAST; CT CERVICAL SPINE WO CONTRAST REASON FOR STUDY: Fall with closed head injury to include facial ecchymosis. No LOC. No provided cervical spine/neck complaints pursuant to event. No provided past medical or surgical history. Patient on unspecified anticoagulant. TECHNIQUE: Axial images through the head and cervical spine, with sagittal and coronal reformatted images. Automated exposure control was used as a dose optimization technique for this examination. COMPARISON: MRI brain without contrast 06/08/2024; CT head without contrast 06/07/2024; CT head/maxillofacial bones/cervical spine without contrast 08/04/2021. FINDINGS: CT HEAD: BRAIN: No acute intra-axial hemorrhage. No edema, mass effect, midline shift, or herniation. No evidence of acute territorial ischemia or infarct. There is periventricular-subcortical hypoattenuating white matter disease, nonspecific, though likely secondary to chronic microvascular ischemia. EXTRA-AXIAL SPACES: No extra-axial fluid collections. No unenhanced CT evidence of extra-axial mass. There is cerebral and cerebellar volume loss. There is intracranial calcific atherosclerotic disease. CALVARIUM: No acute calvarial fracture. Slight right paramedian frontal scalp contusion. SINUSES/MASTOIDS: Mucosal thickening and dependent fluid level of the visualized maxillary sinuses. Mastoid air cells well-developed and left mastoid air cells well aerated with slight scattered fluid of the dependent right mastoid air cells. ORBITS: No acute abnormality. Right ak chin ocular lens replaced. OTHER: No other significant abnormality. CT CERVICAL SPINE: ALIGNMENT: Alignment and curvature unchanged. VERTEBRAE: No acute fracture. Vertebral body heights unchanged. Spondylosis. DISCS: Multilevel variable loss of intervertebral disc height. HARDWARE: None in the spine. INDIVIDUAL DISC LEVELS: No significant osseous spinal canal; no significant osseous neural foraminal stenosis. UPPER THORACIC: Incompletely imaged. No significant osseous spinal stenosis or osseous neural foraminal stenosis. LUNG APICES: No acute abnormality. NECK SOFT TISSUES: No acute abnormality. OTHER: No other significant findings. IMPRESSION: 1. No acute intracranial process with chronic findings as above. 2. No acute calvarial fracture with soft tissue injury as above. 3. No acute fracture or subluxation of the cervical spine with redemonstration of constellation of spondylolisthesis with straightening of the cervical lordosis, spondylosis, and degenerative disc disease. THIS IS AN ELECTRONICALLY VERIFIED FINAL REPORT 09/11/2024 3:45 PM - Electronically signed by Rhett Griffith M.D. ADALBERTO: ADALBERTO Report ID: [id number] Reading Location: [id number] Procedure Note Rhett Griffith MD - 09/11/2024 EXAM DESCRIPTION: CT HEAD WO CONTRAST; CT CERVICAL SPINE WO CONTRAST REASON FOR STUDY: Fall with closed head injury to include facialecchymosis. No LOC. No provided cervical spine/neck complaints pursuant to event. No provided past medical or surgical history. Patient on unspecified anticoagulant. TECHNIQUE: Axial images through the head and cervical spine, with sagittaland coronal reformatted images. Automated exposure control was used as a dose optimization technique for this examination. COMPARISON: MRI brain without contrast 06/08/2024; CT head withoutcontrast 06/07/2024; CT head/maxillofacial bones/cervical spine without contrast 08/04/2021. FINDINGS: CT HEAD: BRAIN: No acute intra-axial hemorrhage. No edema, mass effect, midlineshift, or herniation. No evidence of acute territorial ischemia or infarct.There is periventricular-subcortical hypoattenuating white matter disease, nonspecific, though likely secondary to chronic microvascular ischemia. EXTRA-AXIAL SPACES: No extra-axial fluid collections. No unenhanced CT evidence of extra-axial mass. There is cerebral and cerebellar volumeloss. There is intracranial calcific atherosclerotic disease. CALVARIUM: No acute calvarial fracture. Slight right paramedian frontal scalp contusion. SINUSES/MASTOIDS: Mucosal thickening and dependent fluid level of the visualized maxillary sinuses. Mastoid air cells well-developed and left mastoid air cells well aerated with slight scattered fluid of thedependent right mastoid air cells. ORBITS: No acute abnormality. Right ak chin ocular lens replaced. OTHER: No other significant abnormality. CT CERVICAL SPINE: ALIGNMENT: Alignment and curvature unchanged. VERTEBRAE: No acute fracture. Vertebral body heights unchanged. Spondylosis. DISCS: Multilevel variable loss of intervertebral disc height. HARDWARE: None in the spine. INDIVIDUAL DISC LEVELS: No significant osseous spinal canal; nosignificant osseous neural foraminal stenosis. UPPER THORACIC: Incompletely imaged. No significant osseous spinalstenosis or osseous neural foraminal stenosis. LUNG APICES: No acute abnormality. NECK SOFT TISSUES: No acute abnormality. OTHER: No other significant findings. IMPRESSION: 1. No acute intracranial process with chronic findings as above. 2. No acute calvarial fracture with soft tissue injury as above. 3. No acute fracture or subluxation of the cervical spine with redemonstration of constellation of spondylolisthesis with straighteningof the cervical lordosis, spondylosis, and degenerative disc disease. THIS IS AN ELECTRONICALLY VERIFIED FINAL REPORT 09/11/2024 3:45 PM - Electronically signed by Rhett Griffith M.D. ADALBERTO: ADALBERTO Report ID: [id number] Reading Location: [place] [address] Kenneth Hernandez NP IMG CT PROCEDURES Final Res ult * CT Chest Abdomen Pelvis WO Contrast (06/07/2024 7:15 PM CDT) Anatomical Region Laterality Modality Body N/A Computed Tomogra phy 06/07/2024 7:32 PM CDT Narrative 06/07/2024 7:49 PM CDT EXAM DESCRIPTION: CT CHEST ABDOMEN PELVIS WO CONTRAST REASON FOR STUDY: altered Altered mental status Diabetic Benign HTN Hiatal hernia TECHNIQUE: CT scan of the chest, abdomen, and pelvis performed without intravenous and without oral contrast using helical scanning technique. Reconstructed coronal and sagittal MPR images reviewed. All images stored on PACS. Automated exposure control was used as a dose optimization technique for this examination. COMPARISON: 11/05/2021, 08/04/2021 FINDINGS: The sensitivity for detection of visceral lesions is diminished without the use of intravenous contrast. The examination is also limited secondary to motion. CHEST LUNGS: Bilateral pulmonary nodules are grossly stable in size. The largest is in the right middle lobe measuring 1.3 cm in size. There is atelectasis in the lung bases. PLEURA: There is a small left pleural effusion. No pneumothorax. MEDIASTINUM/ALBERTO: No identified masses or abnormal nodes. There is a large hiatal hernia with most of the stomach located within the thoracic cavity. HEART: Heart size is normal with no pericardial effusion. CORONARY ARTERY CALCIFICATION: Present. VASCULATURE CHEST: Atheromatous disease of the aorta without aneurysm. AXILLA: There are enlarged left axillary lymph nodes measuring up to 1.6 cm in short axis. CHEST WALL: No masses. No subcutaneous air. HARDWARE/LINES/TUBES: None. MUSCULOSKELETAL CHEST: There are degenerative changes in the spine. ABDOMEN/PELVIS LIVER: Normal size. No identified cystic or solid masses. No cysts. GALLBLADDER: Unremarkable. BILE DUCTS: No intrahepatic or extrahepatic ductal dilatation. SPLEEN: Normal size. No focal lesions. PANCREAS: No identified cystic or solid masses. No significant calcifications. No adjacent inflammation or peripancreatic fluid collections. Pancreatic duct not dilated. ADRENALS: Normal. KIDNEYS/URINARY TRACT: Several hypodense lesions are again seen in both kidneys. The largest measures 7.5 cm, arising from the left kidney. These are most likely cysts. No stones. No hydronephrosis or hydroureter. Urinary bladder is unremarkable. The prostate gland is enlarged. GI: No dilated bowel loops. No obvious wall thickening. Normal appendix. No significant diverticular disease. There is stool throughout the colon. PERITONEUM: No ascites or free air. RETROPERITONEUM: No mass or adenopathy. REPRODUCTIVE: No significant abnormality. VASCULATURE ABDOMEN: Atherosclerotic disease in the aorta and iliacs. MUSCULOSKELETAL ABDOMEN PELVIS: Multilevel degenerative changes are present without fracture. There are also degenerative changes in the hips. No concerning lesions are present. OTHER: There are bilateral inguinal hernias containing fat. IMPRESSION: Limited examination secondary to motion. Stable bilateral pulmonary nodules since at least 2021. Small left pleural effusion. Large hiatal hernia. Enlarged left axillary lymph nodes. These are suspicious for lymphoma or metastatic disease. Bilateral renal lesions, most likely cysts. Enlarged prostate gland. Additional findings as above. THIS IS AN ELECTRONICALLY VERIFIED FINAL REPORT 06/07/2024 7:49 PM - Electronically signed by Isadora Jimenez M.D. LL: SHRAVAN Report ID: [id number] Reading Location: [id number] Procedure Note Isadora Jimenez MD - 06/07/2024 EXAM DESCRIPTION: CT CHEST ABDOMEN PELVIS WO CONTRAST REASON FOR STUDY: altered Altered mental status Diabetic Benign HTN Hiatal hernia TECHNIQUE: CT scan of the chest, abdomen, and pelvis performed without intravenous and without oral contrast using helical scanning technique. Reconstructed coronal and sagittal MPR images reviewed. All images storedon PACS. Automated exposure control was used as a dose optimizationtechnique for this examination. COMPARISON: 11/05/2021, 08/04/2021 FINDINGS: The sensitivity for detection of visceral lesions is diminished withoutthe use of intravenous contrast. The examination is also limited secondary to motion. CHEST LUNGS: Bilateral pulmonary nodules are grossly stable in size. Thelargest is in the right middle lobe measuring 1.3 cm in size. There isatelectasis in the lung bases. PLEURA: There is a small left pleural effusion. No pneumothorax. MEDIASTINUM/ALBERTO: No identified masses or abnormal nodes. There is alarge hiatal hernia with most of the stomach located within the thoracic cavity. HEART: Heart size is normal with no pericardial effusion. CORONARY ARTERY CALCIFICATION: Present. VASCULATURE CHEST: Atheromatous disease of the aorta without aneurysm. AXILLA: There are enlarged left axillary lymph nodes measuring up to 1.6cm in short axis. CHEST WALL: No masses. No subcutaneous air. HARDWARE/LINES/TUBES: None. MUSCULOSKELETAL CHEST: There are degenerative changes in the spine. ABDOMEN/PELVIS LIVER: Normal size. No identified cystic or solid masses. No cysts. GALLBLADDER: Unremarkable. BILE DUCTS: No intrahepatic or extrahepatic ductal dilatation. SPLEEN: Normal size. No focal lesions. PANCREAS: No identified cystic or solid masses. No significant calcifications. No adjacent inflammation or peripancreatic fluidcollections. Pancreatic duct not dilated. ADRENALS: Normal. KIDNEYS/URINARY TRACT: Several hypodense lesions are again seen in both kidneys. The largest measures 7.5 cm, arising from the left kidney.These are most likely cysts. No stones. No hydronephrosis or hydroureter. Urinary bladder is unremarkable. The prostate gland is enlarged. GI: No dilated bowel loops. No obvious wall thickening. Normalappendix. No significant diverticular disease. There is stool throughout thecolon. PERITONEUM: No ascites or free air. RETROPERITONEUM: No mass or adenopathy. REPRODUCTIVE: No significant abnormality. VASCULATURE ABDOMEN: Atherosclerotic disease in the aorta and iliacs. MUSCULOSKELETAL ABDOMEN PELVIS: Multilevel degenerative changes arepresent without fracture. There are also degenerative changes in the hips. No concerning lesions are present. OTHER: There are bilateral inguinal hernias containing fat. IMPRESSION: Limited examination secondary to motion. Stable bilateral pulmonary nodules since at least 2021. Small left pleural effusion. Large hiatal hernia. Enlarged left axillary lymph nodes. These are suspicious for lymphoma or metastatic disease. Bilateral renal lesions, most likely cysts. Enlarged prostate gland. Additional findings as above. THIS IS AN ELECTRONICALLY VERIFIED FINAL REPORT 06/07/2024 7:49 PM - Electronically signed by Isadora Jimenez M.D. LL: LL Report ID: [id number] Reading Location: [place] [address] PROCEDURES Final R esult * PSA screen (06/08/2023 9:40 AM CDT) PSA-Total 0.22 <=6.20 ng/mL [facility] ([place]) Comment: Interpretive Data AGE SEX REFERENCE INTERVAL 0 minutes-150 years Female None 0 minutes-49 years Male None 50-59 years Male 0-3.90 60-69 years Male 0-5.40 70-79 years Male 0-6.20 80-150 years Male 0-6.20 The [employer] PSA Total assay procedure was used. Results from different manufacturers or methods may not be comparable. Serial testing should be performed using the same method. Current interpretive data last revised 22. Blood 06/08/2023 9:40 AM CDT 06/08/2023 10:30 AM CDT Harsha Anand MD LAB BLOOD ORDERABLES Fi nal Result [facility] ([place]) 1 [facility] Department [place] [address] * Albumin Creatinine Ratio, Urine (06/08/2023 9:40 AM CDT) Albumin Ur 31.6 mg/L [facility] ([place]) Comment: Interpretive Data No reference range established. Current interpretive data was last revised 2019. Testing performed by: [address] [address] Creatinine Ur 134.9 mg/dL [facility] ([place]) Comment: Interpretive Data No reference range established. Current interpretive data was last revised 2019. Testing performed by: [address] [address] Albumin Creatinine Ratio, Ur 23 1 - 29 mg/g [facility] ([place]) Comment:Testing performed by : [address] [address] Urine 06/08/2023 9:40 AM CDT 06/08/2023 2:01 PM CDT Harsha Anand MD LAB URINE ORDERABLES Fi nal Result [facility] ([place]) 1 [facility] Department [place] [address] * Diabetic Eye Exam (05/16/2021) Historical [facility] Final Result * DIABETES FOOT EXAM (08/04/2019) Pathologist [facility] Diabetic Foot Exam Abnormal Historical [facility] Final Result * Colonoscopy (05/01/2011) Anatomical Region Laterality Modality Other Historical [facility] ENDOSCOPY PROCEDURES Denice l Result from Last 3 Months or Most Recently Relevant to Health Maintenance Additional Health Concerns Infection Onset Date Last Indicated COVID: Recovered Comment:Added based on recent COVID infection. 11/20/2024 025 Insurance MEDICARE [employer]CIAL MEDICARE COMMERCIAL GENERIC MEDICARE [facility] FINANCIAL Advance Directives For more information, please contact: [phone] Documents on File Type Date Recorded Patient Summer Clerk Expl anation ADVANCE DIRECTIVE 10/20/2024 9:44 AM POLST * LIMITED - No CPR (Latest Code Status on File) Date Activated Date Inactivated Comments 11/09/2024 5:19 PM 11/20/2024 5:25 PM Question Answer Comments Provide aggressive medical m anagement before a full cardiopulmonary arrest occurs. Use antibiotics, IV Fluids, and medical treatment unless specifically selected below: No intubationNo vasopressorsNo non-invasive ventilationNo cardioversionNo internal / external pacemaker Care Teams Construction Equipment Mechanic Relationship Specialty Start Date End Date Harsha Anand MD [address] [place] [address] DR BURLESON [address] [place] [id number] PCP - General Internal Medicine 10/16/24
--- OUTSIDE RECORDS SUMMARY | 2024-11-27 19:23 | XMS_ITS | Encounter Summary ---
Author Organization [facility] Address [address] [place] [address] Care Team Providers Care Recruiting Operations Consultant Name Role Phone Unavailable Primary Care Provider Unavailabl e Encounter Details Date Type Department Care Team (Late st Contact Info) Description 09/25/2020 Lab Requisition [facility] DermPath Lab [address] [place] [id number] Lion More MD [address] [place] [address] Social History Tobacco Use Types [...] Priority Date/Time Associated Diagnosis Comments DERMATOPATHOLOGY Routine 09/24/2020 12:0 0 AM COLD PRESS LOADER documented in this encounter Results * DERMATOPATHOLOGY (09/24/2020 12:00 AM COLD PRESS LOADER) Case Report Dermatopathology Report Case: [id number] Authorizing Provider: Lion More MD Collected: 09/24/2020 12:00 AM Ordering Location: [facility] Derm[facility] Lab Received: 09/25/2020 10:34 AM Pathologist: Chastity Gutierrez MD Specimen: Skin, posterior upper right arm 12:56 PM COLD PRESS LOADER DERMATOPATHOLOGY LABORATORY Final Diagnosis Specimen A. 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 12:56 PM [facility] DERMATOPATHOLOGY LABORATORY Gross Description Specimen A: Received is one formalin filled container labeled with the patient's name and designated posterior upper right arm. The specimen consists of a shave biopsy measuring [id number]. Jar 0. 12:56 PM [facility] DERMATOPATHOLOGY LABORATORY Microscopic Description Specimen A. SKIN, posterior upper right arm: There is hyperkeratosis alternating with parakeratosis. There is epidermal hyperplasia with disorderly maturation of keratinocytes with nuclear pleomorphism confined to the lower half of the epidermis. The lesion is inflamed. 12:56 PM [facility] DERMATOPATHOLOGY LABORATORY Disclaimer An external and internal positive and negative controls are appropriate for the histochemical, immunohistochemical and immunofluorescence stain(s) in this case (if any), except where stated explicitly. The performance characteristics of the stain(s) cited in this report were developed and its performance characteristic determined by the Dermatopathology Laboratory at [facility], directed by Dr. Deion Bhatt. These tests need not be, and therefore are not, approved by the [place] Food and Drug Administration. The tests are used for clinical purposes. Billing Codes Specimen Charges Stain Charges 52037 1 12:56 PM COLD PRESS LOADER DERMATOPATHOLOGY LABORATORY Embedded Images 12:56 PM [facility] DERMATOPATHOLOGY LABORATORY Pathology/Cytolog y TISSUE SPECIMEN FROM SKIN / Unknown 09/24/2020 09/25/2020 10:34 AM COLD PRESS LOADER Lion More MD LAB - PATHOLOGY/CYTO LOGY ORDERABLES DERMATOPATHOLOGY LABORATORY [facility] - Department of Dermatology [address] [place] [address], [facility] [phone] documented in this encounter Visit Diagnoses Not on filedocumented in this encounter
--- OUTSIDE RECORDS SUMMARY | 2024-11-27 19:23 | XMS_ITS | Clinical Summary ---
Author Organization [facility] Address [address] [place] [address] Phone Care Team Providers Care Retail Aide Name Role Phone Unavailable Unavailable Unavailable Reason [...] Time Diagnosis [facility] M.D. [facility] OP 2 2:37PM 2:37PM Clinical Notes Includes: Clinical Notes from this encounter No Clinical Notes Recorded
--- OUTSIDE RECORDS SUMMARY | 2024-11-27 19:23 | XMS_ITS ---
Author Organization [facility] Address [address] [place] [address] Phone Care Team Providers Care Production Specialist Name Role Phone Unavailable Unavailable Unavailable Plan of Treatment No Plan of Treatment [...] this document type No Physical Exam Recorded Clinical Notes Includes: Signed Clinical Notes starting from 10/09/2022 No Clinical Notes Recorded
--- OUTSIDE RECORDS SUMMARY | 2024-11-27 19:23 | XMS_ITS | Clinical Summary ---
Author Organization [facility] Address [address] [place] [address] Care Team Providers Care Metal Rivet Machine Operator Name Role Phone Harsha Anand MD Primary Care Provider Allergies No known active allergies Medications lisinopril-hydroCH [...] 1 tablet by mouth daily 30 tablet 10/16/19 25 025 Discontin ued(Stop Taking at Discharge ) calcium carbonate (Calcium 500) 1,250 mg (500 mg elemental) chewable tablet Take 1 tablet (1,250 mg total) by mouth daily 30 tablet 10/16/19 25 025 Discontin ued(Stop Taking at [...] arthropathy 01/16/2021 DDD (degenerative disc disease), lumbar 04/29/20 21 Sacroiliitis 01/16/2021 halfway current use of anticoagulant 1 Abnormal fasting glucose 06/03/2020 Itching 11/28/2019 Chronic idiopathic constipation 10/13/2018 Assessment & Plan (10/13/2018 2:05 PM PRIMER INSERTING MACHINE OPERATOR): Clinically stable w/o concerns of obstruction. Cont increase fiber, water intake. 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 Recommended medrol pack, heat, stretching, and tylenol prn. He requested imaging to reassure this is just arthritis. Will f/u pending results of xray with additional recommendations if indicated. RTC prn Atopic dermatitis 08/29/2018 Assessment & Plan (10/13/2018 2:04 PM PRIMER INSERTING MACHINE OPERATOR): Controlled well with OTC hypoallergenic soaps and triamcinolone BID as needed avoidance of eyes encouraged Assessment & Plan (08/29/2018 11:06 AM PRIMER INSERTING MACHINE OPERATOR): Refilled triamcinolone 0.1% ointment, rather than cream, to apply twice daily, blanca before beditime along with oatmeal baths, atarax 25mg 0.5-1 tablet QHS prn. RTC with little improvement in week and we'll consider steroids. Bilateral lower extremity edema 08/29/2018 Assessment & Plan (08/29/2018 11:12 AM PRIMER INSERTING MACHINE OPERATOR): Discussion with patient office today regarding his [...] day Assessment & Plan (08/06/2021 12:33 PM PRIMER INSERTING MACHINE OPERATOR): Recommend DASH diet, heart-healthy lifestyle, exercise. Discussed [...] hypertension. Assessment & Plan (08/29/2018 11:11 AM PRIMER INSERTING MACHINE OPERATOR): Stable in office today. Continue current antihypertensives, low-sodium/dash diet monitoring of swelling in legs was discussed below and follow-up in office as scheduled for repeat labs in office visit Obstructive sleep apnea syndrome 12/18/2011 Overview (12/23/2016): Obstructive sleep apnea syndrome Severe obesity (BMI 35.0-35.9 with comorbidity) ([facility]) 12/18/2011 Overview (12/23/2016): Obesity Assessment & Plan [...] apnea 09/03/2011 05/10/2017 Overview (12/23/2016): Sleep apnea Encounters Date Type Department Care Team Description 11/20/2024 12:55 PM PRIMER INSERTING MACHINE OPERATOR - 11/20/2024 11:59 PM PRIMER INSERTING MACHINE OPERATOR Hospital Encounter [facility], Room R Discharge Disposition: Discharge to home or self care 11/09/2024 1:03 PM PRIMER INSERTING MACHINE OPERATOR - 11/09/2024 11:59 PM PRIMER INSERTING MACHINE OPERATOR Hospital Encounter [facility] Emergency, Room R Discharge Disposition: Discharge to home or self care 11/09/2024 12:25 PM PRIMER INSERTING MACHINE OPERATOR - 11/20/2024 1:19 PM PRIMER INSERTING MACHINE OPERATOR Hospital Encounter [place] [id number] Ramírez, Priclila ThuMD Cheng John Arthur, MD Davis, Cedric Emden II, MD Kheirkhahan, Nazanin, MD Singh, Arjun, MD Sargsyan, Narine, MD Somnolence (Primary Dx); COVID; BRITTANI (acute kidney injury); Dehydration; Lorazepam adverse reaction, initial encounter Discharge Disposition: Discharge to SNF 11/01/2024 3:26 PM PRIMER INSERTING MACHINE OPERATOR - 11/01/2024 11:59 PM PRIMER INSERTING MACHINE OPERATOR Hospital Encounter [place] [address] [place] [address] Discharge Disposition: Discharge to home or self care 10/24/2024 Telephone [facility] Primary Care at [address] [phone] Harsha Anand MD Medical Question/Miscellane ous 10/21/2024 Nurse Triage [facility] Primary Care at [address] [phone] Aminata Acevedo, ART 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) 10/21/2024 Nurse Triage [facility] Medical [facility] Primary Care at [address] [place] [phone] Kirsten Mckenna, ART 10/17/2024 Telephone [facility] Medical [facility] Primary Care at [address] [phone] Harsha Anand MD Paperwork 10/16/2024 Orders Only [facility] Primary Care at [address] [phone] Harsha Anand MD 10/16/2024 Telephone [facility] Medical [facility] Primary Care at [address] [phone] Harsha Anand MD 10/16/2024 Telephone [facility] Medical [facility] Primary Care at [address] [phone] Lion More MD 10/13/2024 10:00 AM PRIMER INSERTING MACHINE OPERATOR Lab [address] Type 2 diabetes mellitus with diabetic polyneuropathy, without long-term current use of insulin (HCC) 10/10/2024 4:00 PM PRIMER INSERTING MACHINE OPERATOR Office Visit [facility] Primary Care at [address] [phone] Harsha Anand MD Medicare annual wellness visit, [...] unspecified whether serious comorbidity present 10/05/2024 Telephone [facility] Primary Care at [address] [phone] Lion More MD Appointment 09/11/2024 2:38 PM PRIMER INSERTING MACHINE OPERATOR - 09/11/2024 6:21 PM PRIMER INSERTING MACHINE OPERATOR Emergency [facility] Emergency Department [address] [place] [address] Discharge Disposition: Left without being seen from Last 3 Months Immunizations Immunization Administration Dates Next Due Influenza, [...] 05/11/2021,05/29/2019 ZOSTER LIVE 08/15/2016 ZOSTER Recombinant 09/07/2019,06/15/2019 Medical History Medical History Date Comments Hx Other Medical JERO Hx Other Medical 1994 hernia Hx Other Medical 1996 hernia Hypertension Hypertension Anemia anemia Hx Other Medical cataracts. Hyperlipidemia Hyperlipidemia Family History Medical History Relation Name Comments Dementia Mother Dementia; Stroke Mother Stroke; Hypertension Other Family history of Hypertension; Relation Name Status Comments Mother Other Social History Tobacco Use Types Packs/Day Years Used Date Smoking Tobacco: Former Cigarettes 1983 Smokeless Tobacco: Never Alcohol Use Standard Drinks/Week Comments Yes 0 (1 standard drink = 0.6 oz pur e alcohol) [facility] [employer] Answer Date Recorded In the past 12 months has th e electric, gas, oil, or water company threatened to shut off services in your home? No 11/13/2024 Social Connection and Isolation Panel [NHANES] A nswer Date Recorded In a typical week, how many times do you talk on the phone with family, friends, or neighbors? Twice a week 11/13/2024 How often do you get together with friends or re latives? Twice a week 11/13/2024 How often do you attend orthodox or rastafarian serv ices? Never 11/13/2024 Do you belong to any clubs o r organizations such as orthodox groups, unions, fraternal or athletic groups, or [...] place to sleep or slept in a assisted (including now)? No 11/19/2021 Housing Stability Vital Sign Answer Sascha e Recorded In the last 12 months, was t here a time when you were not able to pay the mortgage or rent on time? No 11/13/2024 In the past 12 months, how m any times have you moved where you were living? 0 11/13/2024 At any time in the past 12 m [facility], were you homeless or living in a assisted (including now)? No 11/13/2024 Personal Safety Answer Date Recorded Have you ever been in or are you currently in a harmful physical or emotional relationship or is someone making you feel afraid or unsafe? Denies 11/09/2024 Sex and Gender Information Value Date Recorded Sex Assigned at Not on file Legal Sex Male 6:38 AM PRIMER INSERTING MACHINE OPERATOR Gender Identity Not on file Sexual Orientation Not on file Obstetrics History Last Filed Vital Signs Vital Sign Reading Time Taken Comments Blood Pressure 108/54 11/20/2024 8:14 AM PRIMER INSERTING MACHINE OPERATOR Pulse 86 11/20/2024 8:14 AM PRIMER INSERTING MACHINE OPERATOR Temperature 36 C (96.8 F) 11/20/2024 8:14 AM PRIMER INSERTING MACHINE OPERATOR Respiratory Rate 14 11/20/2024 8:14 AM PRIMER INSERTING MACHINE OPERATOR Oxygen Saturation 91% 11/20/2024 8:14 AM PRIMER INSERTING MACHINE OPERATOR Inhaled Oxygen Concentration - - Weight 90.2 kg (198 lb 12.4 oz) 11/16/2024 5:00 AM PRIMER INSERTING MACHINE OPERATOR Height 170.2 cm (5' 7.01 ) 11/09/2024 8:12 PM CS T Body Mass Index 31.13 11/09/2024 8:12 PM PRIMER INSERTING MACHINE OPERATOR Plan of Treatment Health Maintenance Due Date Last Done Comments Hepatitis B Screening 1953 Colon Cancer Screening-Colonoscopy 05/01/2016 05/01/2011 Dilated Eye Exam 05/16/2023 05/16/2021, 07/01/2020 Albumin Creatinine Ratio, Urine 06/08/2024 06/08/2023, 06/04/2022, 06/02/2021, Additional history exists Prostate Cancer Screening-PSA 06/08/2024, 06/04/2022, 06/02/2021, Additional history exists Covid-19 Vaccine ( season) 2024 06/27/2024, 07/01/2023, 02/09/2023, Additional history exists Hemoglobin A1C 04/12/2025 10/13/2024, 11/19, 06/08/2023, Additional history exists Foot Exam 10/10/2025 10/10/2024, 03/20, 12/21/2023, Additional history exists Well Visit 65+ 10/10/2025 10/10/2024, 05/22, 06/11/2022, Additional history exists Depression Screening 11/09/2025 11/09/2024, 10/10/2024, 03/31/2024, Additional history exists Lipid Panel 11/12/2025 11/12/2024, 09/21, 12/14/2023, Additional history exists eGFR 11/13/2025 11/13/2024, 10/22, 11/10/2024, Additional history exists Fall Risk Assessment 11/20/2025 11/20/2024, 10/10/2024, 03/31/2024, Additional history exists DTaP/Tdap/Td Vaccine (3 - Td or Tdap) 05/11/2031 05/11/2021, 05/29/2019 Colon Cancer Screening-CT Colonography Discontinued 05/01/2011 Colon Cancer Screening-DNA Stool Discontinued 05/01/20 Colon Cancer Screening-FIT Discontinued 05/01/2011 Colon Cancer Screening-Sigmoidoscopy Discontinued 05/01/2011 Pneumococcal vaccine 65+ Completed 04/16/2015, 09/2002 Zoster Vaccine Completed 09/07/2019, 05/22, 08/15/2016 Abdominal Aortic Aneurysm (A AA) Screen Completed 06/07/2024, 08/04/2021 Influenza Vaccine Completed 06/27/2024, , 06/17/2022, Additional history exists Procedures Procedure Name Priority Date/Time Associated Diagnosis Comments EGFR Routine 11/13/2024 8:41 AM PRIMER INSERTING MACHINE OPERATOR BASIC METABOLIC PANEL Routine 11/13/2024 8:41 AM PRIMER INSERTING MACHINE OPERATOR EGFR Routine 11/12/2024 9:16 AM PRIMER INSERTING MACHINE OPERATOR LIPID PANEL Routine 11/12/2024 9:16 AM PRIMER INSERTING MACHINE OPERATOR BASIC METABOLIC PANEL Routine 11/12/2024 9:16 AM PRIMER INSERTING MACHINE OPERATOR EGFR Routine 11/10/2024 9:44 AM PRIMER INSERTING MACHINE OPERATOR DIFFERENTIAL AUTO Routine 11/10/2024 9:4 4 AM PRIMER INSERTING MACHINE OPERATOR COMPREHENSIVE METABOLIC PANEL Routine 11/10/2024 9:44 AM PRIMER INSERTING MACHINE OPERATOR CBC WITH AUTO DIFFERENTIAL Routine 11/10/2024 9:44 AM PRIMER INSERTING MACHINE OPERATOR TROPONIN T HIGH-SENSITIVITY 6-HOUR Timed 11/09/2024 9:11 PM PRIMER INSERTING MACHINE OPERATOR TROPONIN T HIGH-SENSITIVITY 4-HR Timed 11/09/2024 4:40 PM PRIMER INSERTING MACHINE OPERATOR URINALYSIS, MICROSCOPIC ONLY STAT 11/09/2024 4:05 PM PRIMER INSERTING MACHINE OPERATOR URINE CULTURE STAT 11/09/2024 4:05 PM PRIMER INSERTING MACHINE OPERATOR URINALYSIS AND REFLEX TO MICROSCOPIC AND CULTURE STAT 11/09/2024 4:05 PM PRIMER INSERTING MACHINE OPERATOR SEPSIS LACTATE WITH REFLEX Routine 11/09/2024 3:06 PM PRIMER INSERTING MACHINE OPERATOR TROPONIN T HIGH-SENSITIVITY 2-HOUR Timed 11/09/2024 3:06 PM PRIMER INSERTING MACHINE OPERATOR CT HEAD WO CONTRAST ED 11/09/2024 2 :25 PM PRIMER INSERTING MACHINE OPERATOR XR CHEST 1 VIEW ED 11/09/2024 1:43 PM PRIMER INSERTING MACHINE OPERATOR INFLUENZA A/B, RSV, AND COVID-19 PCR STAT 11/09/2024 1:24 PM PRIMER INSERTING MACHINE OPERATOR POCT GLUCOSE DEVICE Routine 11/09/2024 1 2:37 PM PRIMER INSERTING MACHINE OPERATOR TSH STAT 11/09/2024 12:37 PM PRIMER INSERTING MACHINE OPERATOR EGFR STAT 11/09/2024 12:37 PM PRIMER INSERTING MACHINE OPERATOR DIFFERENTIAL AUTO STAT 11/09/2024 12: 37 PM PRIMER INSERTING MACHINE OPERATOR TROPONIN T HIGH-SENSITIVITY SERIES (BASELINE, 2HR, 4HR, 6HR) STAT 11/09/2024 12:37 PM PRIMER INSERTING MACHINE OPERATOR COMPREHENSIVE METABOLIC PANEL STAT 11/09/2024 12:37 PM PRIMER INSERTING MACHINE OPERATOR CBC WITH AUTO DIFFERENTIAL STAT 11/09/2024 12:37 PM PRIMER INSERTING MACHINE OPERATOR ECG 12-LEAD Routine 11/09/2024 12:29 PM PRIMER INSERTING MACHINE OPERATOR EGFR Routine 11/01/2024 11:40 AM PRIMER INSERTING MACHINE OPERATOR DIFFERENTIAL AUTO Routine 11/01/2024 11: 40 AM PRIMER INSERTING MACHINE OPERATOR CBC WITH AUTO DIFFERENTIAL Routine 11/01/2024 11:40 AM PRIMER INSERTING MACHINE OPERATOR BASIC METABOLIC PANEL Routine 11/01/2024 11:40 AM PRIMER INSERTING MACHINE OPERATOR EGFR Routine 10/13/2024 10:04 AM PRIMER INSERTING MACHINE OPERATOR Type 2 diabetes mellitus with diabetic polyneuropathy, without long-term current use of insulin (HCC) HEMOGLOBIN A1C Routine 10/13/2024 10:04 AM PRIMER INSERTING MACHINE OPERATOR Type 2 diabetes mellitus with diabetic polyneuropathy, without long-term current use of insulin (HCC) COMPREHENSIVE METABOLIC PANEL Routine 10/13/2024 10:04 AM PRIMER INSERTING MACHINE OPERATOR Type 2 diabetes mellitus with diabetic polyneuropathy, without long-term current use of insulin (HCC) LIPID PANEL Routine 10/13/2024 10:04 AM PRIMER INSERTING MACHINE OPERATOR Type 2 diabetes mellitus with diabetic polyneuropathy, without long-term current use of insulin (HCC) CT HEAD WO CONTRAST ED 09/11/2024 3 :30 PM PRIMER INSERTING MACHINE OPERATOR CT CERVICAL SPINE WO CONTRAST ED 09/11/2024 3:30 PM PRIMER INSERTING MACHINE OPERATOR CT CHEST ABDOMEN PELVIS WO CONTRAST ED [...] Maintenance Results * eGFR (11/13/2024 8:41 AM PRIMER INSERTING MACHINE OPERATOR) eGFR 65 >=60 mL/min/1. 73 m2 Comment: [...] last reviewed 2021. Blood 11/13/2024 8:41 AM PRIMER INSERTING MACHINE OPERATOR 11/13/2024 8:53 AM PRIMER INSERTING MACHINE OPERATOR us Ricky Ross II, MD LAB BLOOD ORDERABLES F inal Result [facility] ([place]) 1 [facility] Department [place] [address] * (ABNORMAL) Basic metabolic panel (11/13/2024 8:41 AM PRIMER INSERTING MACHINE OPERATOR) Sodium 135 135 - 145 mmol/L Potassium, [...] ([place]) Glucose 110 70 - 199 mg/dL [facility] ([place]) [...] 9.2 8.5 - 10.3 mg/dL [facility] ([place]) Blood 11/13/2024 8:41 AM PRIMER INSERTING MACHINE OPERATOR 11/13/2024 8:53 AM PRIMER INSERTING MACHINE OPERATOR us Ricky Ross II, MD LAB BLOOD ORDERABLES F inal Result [facility] ([place]) 1 [facility] Department [place] [address] * eGFR (11/12/2024 9:16 AM PRIMER INSERTING MACHINE OPERATOR) eGFR 67 >=60 mL/min/1. 73 m2 Comment: [...] last reviewed 2021. Blood 11/12/2024 9:16 AM PRIMER INSERTING MACHINE OPERATOR 11/12/2024 9:48 AM PRIMER INSERTING MACHINE OPERATOR us Ricky Ross II, MD LAB BLOOD ORDERABLES F inal Result [facility] ([place]) 1 [facility] Department [place] [address] * (ABNORMAL) Lipid panel (11/12/2024 9:16 AM PRIMER INSERTING MACHINE OPERATOR) Cholesterol 167 30 - 199 mg/dL Comment: [...] 2018. LDL, calculated 115 <=129 mg/dL [facility] ([place]) Comment: Interpretive [...] last revised on 2018. Chol/HDL ratio 6 [facility] ([place]) Blood 11/12/2024 9:16 AM PRIMER INSERTING MACHINE OPERATOR 11/12/2024 9:48 AM PRIMER INSERTING MACHINE OPERATOR us Ricky Ross II, MD LAB BLOOD ORDERABLES F inal Result [facility] ([place]) 1 [facility] Department [place] [address] * (ABNORMAL) Basic metabolic panel (11/12/2024 9:16 AM PRIMER INSERTING MACHINE OPERATOR) Sodium 137 135 - 145 mmol/L Potassium, pl 4.5 3.3 - 4.9 mmol/L [facility] ([place]) Chloride 100 97 - 110 mmol/L [facility] ([place]) CO2 25 22 - 32 mmol/L [facility] ([place]) Anion gap 12 2 - 15 mmol/L [facility] ([place]) BUN 27(H) 6 - 25 mg/dL [facility] ([place]) Creatinine 1.07 0.80 - 1.30 mg/dL [facility] ([place]) Glucose 93 70 - 199 mg/dL [facility] ([place]) Comment: Interpretive Data Fasting glucose [...] 2022. Calcium 9.1 8.5 - 10.3 mg/dL [facility] ([place]) Blood 11/12/2024 9:16 AM PRIMER INSERTING MACHINE OPERATOR 11/12/2024 9:48 AM PRIMER INSERTING MACHINE OPERATOR us Ricky Ross II, MD LAB BLOOD ORDERABLES F inal Result [facility] ([place]) 1 [facility] Department [place] [address] * eGFR (11/10/2024 9:44 AM PRIMER INSERTING MACHINE OPERATOR) Pathologist [facility] eGFR 72 >=60 mL/min/1. 73 m2 Comment: [...] last reviewed 2021. Blood 11/10/2024 9:44 AM PRIMER INSERTING MACHINE OPERATOR 11/10/2024 9:55 AM PRIMER INSERTING MACHINE OPERATOR us Pricilla Ramírez MD LAB BLOOD ORDERABLES Denice pendleton Result [facility] ([place]) 1 [facility] Department [place] [address] * Differential, auto (11/10/2024 9:44 AM PRIMER INSERTING MACHINE OPERATOR) Neutrophil abs 6.2 1.5 - 6.5 K/cumm [...] revised on 2017. Blood 11/10/2024 9:44 AM PRIMER INSERTING MACHINE OPERATOR 11/10/2024 9:55 AM PRIMER INSERTING MACHINE OPERATOR Pricilla Ramírez MD LAB BLOOD ORDERABLES Denice l Result [facility] ([place]) 1 [facility] Department [place] [address] * (ABNORMAL) CBC with auto differential (11/10/2024 9:44 AM PRIMER INSERTING MACHINE OPERATOR) WBC 9.1 3.8 - 9.9 K/cumm Hgb 14.1 13.0 - 17.5 g/dL [facility] ([place]) Hct 41.9 38.9 - 50.3 % [facility] ([place]) Plt 245 150 - 400 [...] NRBC abs 0.00 0.00 - 0.01 K/cumm [facility] Blood 11/10/2024 9:44 AM PRIMER INSERTING MACHINE OPERATOR 11/10/2024 9:55 AM PRIMER INSERTING MACHINE OPERATOR Pricilla Raímrez MD LAB BLOOD ORDERABLES Denice l Result [facility] ([place]) 1 [facility] [place] [address] * Comprehensive metabolic panel (11/10/2024 9:44 AM PRIMER INSERTING MACHINE OPERATOR) Sodium 136 135 - 145 mmol/L Potassium, pl 4.2 3.3 - 4.9 mmol/L [facility] Chloride 98 97 - 110 mmol/L [facility] ([place]) CO2 26 22 - 32 mmol/L [facility] ([place]) Anion gap 12 2 - 15 mmol/L [facility] ([place]) BUN 24 6 - 25 mg/dL [facility] Creatinine 1.00 0.80 - [...] [facility] ([place]) Blood 11/10/2024 9:44 AM PRIMER INSERTING MACHINE OPERATOR 11/10/2024 9:55 AM PRIMER INSERTING MACHINE OPERATOR us Pricilla Ramírez MD LAB BLOOD ORDERABLES Denice pendleton Result [facility] ([place]) 1 [facility] Department [place] [address] * (ABNORMAL) Troponin T high-sensitivity 6-hour (11/09/2024 9:11 PM PRIMER INSERTING MACHINE OPERATOR) Trop T hs 28(H) <=22 ng/L Comment: Interpretive Data For further hscTnT resources including the diagnostic algorithm and an aid in interpretation, copy and paste this link: https://nrl.testcatalog.org/show/hsTrop Current Interpretive Data last revised 2020. Trop T hs delta See Comment ng/L [facility] ([place]) Comment:Inappropriate collec tion time to report a delta. Trop T hs pct delta See Comment % [facility] ([place]) Comment:Inappropriate collec tion time to report a delta. Trop T hs interp See Comment [facility] ([place]) Comment:Inappropriate collec tion time to report a delta. Blood 11/09/2024 9:11 PM PRIMER INSERTING MACHINE OPERATOR 11/09/2024 9:13 PM PRIMER INSERTING MACHINE OPERATOR Pricilla Ramírez MD LAB BLOOD ORDERABLES Denice l Result Performing Organization Address [facility] Co de Phone Number [facility] ([place]) [address] [place] [address] * (ABNORMAL) Troponin T high-sensitivity 4-hour (11/09/2024 4:40 PM PRIMER INSERTING MACHINE OPERATOR) Trop T hs 25(H) <=22 ng/L Comment: Interpretive Data For further hscTnT resources including the diagnostic algorithm and an aid in interpretation, copy and paste this link: https://nrl.testcatalog.org/show/hsTrop Current Interpretive Data last revised 2020. Trop T hs delta -5 ng/L [facility] ([place]) Trop T hs interp Equivocal [facility] ([place]) Blood 11/09/2024 4:40 PM PRIMER INSERTING MACHINE OPERATOR 11/09/2024 4:44 PM PRIMER INSERTING MACHINE OPERATOR Pricilla Ramírez MD LAB BLOOD ORDERABLES Denice l Result Performing Organization Address City/[facility]/ZIP Co de Phone Number [facility] ([place]) [address] [place] [address] * (ABNORMAL) Urinalysis reflex to microscopic and culture Urine (11/09/2024 4:05 PM PRIMER INSERTING MACHINE OPERATOR) Color, ur Yellow Yellow Clarity, ur Clear Clear [facility] ([place]) Specific gravity, ur 1.019 1.003 - 1.030 [facility] ([place]) pH, urine 6.5 [facility] ([place]) Comment: Interpretive Data U rine pH is affected by diet, medications, systemic acid-base disturbances, and renal tubular function. pH may affect urinary stone formation. For example, urine pH below 6.0 may help reduce the tendency for calcium phosphate stones and pH greater than 6.0 may reduce the tendency for uric acid stone formation. Source: [facility] Current Interpretive Data was last revised on [...] [facility] ([place]) Leukocyte esterase, ur 2+(A) Negative [facility] ([place]) UA reflex comment Reflex to microscopic UA will be performed. [facility] Urine 11/09/2024 4:05 PM PRIMER INSERTING MACHINE OPERATOR 11/09/2024 4:13 PM PRIMER INSERTING MACHINE OPERATOR us Pricilla Ramírez MD LAB MICROBIOLOGY - GENERA L ORDERABLES Final Result Performing Organization Address [facility] de Phone Number [facility] ([place]) 1 [facility] [place] [address] * (ABNORMAL) Urinalysis, microscopic only (11/09/2024 4:05 PM PRIMER INSERTING MACHINE OPERATOR) WBC, ur 11-20(A) 0 - 5 /HPF RBC, ur 0-2 0 - 2 /HPF [facility] ([place]) Epithelial cells, squamous, ur 1-5 0 - 5 /HPF [facility] ([place]) Mucous, ur Present(A) [facility] ([place]) Hyaline casts, ur 6-10 0 - 10 /LPF [facility] ([place]) Culture Reflex Comment Reflex to urine culture will be performed. [facility] ([place]) Urine 11/09/2024 4:05 PM PRIMER INSERTING MACHINE OPERATOR 11/09/2024 4:13 PM PRIMER INSERTING MACHINE OPERATOR us Pricilla Ramírez MD LAB URINE ORDERABLES Denice l Result Performing Organization Address [facility]/ZIP Co de Phone Number [facility] ([place]) 1 [facility] [place] [address] * Urine culture Urine (11/09/2024 4:05 PM PRIMER INSERTING MACHINE OPERATOR) Report Final Report: Less than 100,000 colonies/mL (clinically insignificant growth based on current clinical standards) Comment:Testing performed by : [facility], [address] [facility], [place]., [address] Organism (CLINICALLY INSIGNIFICANT GROWTH [facility] ([place]) Urine 11/09/2024 4:05 PM PRIMER INSERTING MACHINE OPERATOR 11/09/2024 6:13 PM PRIMER INSERTING MACHINE OPERATOR Narrative [facility] ([place]) - 11/10/2024 8:12 PM PRIMER INSERTING MACHINE OPERATOR Urine culture reflexed based upon urinalysis results. Testing performed by [facility] ([phone]) Pricilla Ramírez MD LAB MICROBIOLOGY - GENERA L ORDERABLES Final Result Performing Organization Address [place]/[facility] [facility]/ZIP Co de Phone Number NICHELLEOTONIEL [facility] ([place] 1 [facility] [employer] [place] [address] * (ABNORMAL) Troponin T high-sensitivity 2-hour (11/09/2024 3:06 PM PRIMER INSERTING MACHINE OPERATOR) Trop T hs 28(H) <=22 ng/L Comment: Interpretive Data For further hscTnT resources including the diagnostic algorithm and an aid in interpretation, copy and paste this link: https://nrl.testcatalog.org/show/hsTrop Current Interpretive Data last revised 2020. Trop T hs delta -2 ng/L [facility] Trop T hs interp Insignificant [facility]) Blood 11/09/2024 3:06 PM PRIMER INSERTING MACHINE OPERATOR 11/09/2024 3:09 PM PRIMER INSERTING MACHINE OPERATOR Pricilla Ramírez MD LAB BLOOD ORDERABLES Denice l Result [facility]ITA [facility] ([place]) 1 [facility] Department [place] [address] * Sepsis Lactate w/ Reflex (11/09/2024 3:06 PM PRIMER INSERTING MACHINE OPERATOR) Sepsis Lactate 1.7 0.7 - 2.0 mmol/L Blood 11/09/2024 3:06 PM PRIMER INSERTING MACHINE OPERATOR 11/09/2024 3:09 PM PRIMER INSERTING MACHINE OPERATOR us Pricilla Ramírez MD LAB BLOOD ORDERABLES Denice l Result [facility] ([place]) 1 [facility] Department [place] [address] * CT Head WO Contrast (11/09/2024 2:25 PM PRIMER INSERTING MACHINE OPERATOR) Anatomical Region Laterality Modality Head and Neck N/A Computed Tomogra phy 11/09/2024 2:42 PM PRIMER INSERTING MACHINE OPERATOR Narrative 11/09/2024 2:45 PM PRIMER INSERTING MACHINE OPERATOR EXAM DESCRIPTION: CT HEAD WO CONTRAST REASON [...] Chantale Van M.D. LD: MARGARET Report ID: [id number] Reading Location: [place] [address] Procedure Note Chantale Van MD - 11/09/2024 [...] Chantale Van M.D. LD: MARGARET Report ID: [id number] Reading Location: [place] [address] Pricilla Ramírez MD IMG CT PROCEDURES Final R esult * XR Chest 1 Vw Portable (11/09/2024 1:43 PM PRIMER INSERTING MACHINE OPERATOR) Anatomical Region Laterality Modality Body, Chest N/A Computed Radiogr aphy 11/09/2024 2:16 PM PRIMER INSERTING MACHINE OPERATOR Narrative 11/09/2024 2:20 PM PRIMER INSERTING MACHINE OPERATOR EXAM DESCRIPTION: XR CHEST 1 VIEW REASON FOR STUDY: ms changes Patient has Alzheimer's and has a villous of Aimee Holder. A month ago taken off almost all [...] Titi Esteban M.D. KR: KIMANI Report ID: [id number] Reading Location: [place] [address] Procedure Note Titi Esteban MD - 11/09/2024 EXAM DESCRIPTION: XR CHEST 1 VIEW REASON FOR STUDY: ms emily Patient has Alzheimer's and has a villous of Aimee [employer]. A month agotaken off almost all of [...] Titi Esteban M.D. KR: KIMANI Report ID: [id number] Reading Location: [id number] Pricilla Ramírez MD IMG XR PROCEDURES Final R esult * (ABNORMAL) Influenza A/B, RSV, and COVID-19 PCR Nasopharyngeal (11/09/2024 1:24 PM PRIMER INSERTING MACHINE OPERATOR) COVID-19 RNA Positive(A) Negative Influenza A RNA Negative Negative [facility] Influenza B RNA Negative Negative [facility] RSV RNA Negative Negative [facility] Comment: Interpretive data: Testing performed by [facility]. This test is performed using the Get[employer] Xpert Xpress CoV-2/Flu/RSV plus assay. This is a multiplex, real- time reverse transcriptase PCR assay intended for the qualitative detection of nucleic acid from SARS-CoV-2, influenza A, influenza B, and respiratory syncytial virus. This assay has been cleared by the [place] Food and Drug administration. The performance characteristics have been verified by the [facility]. Results must be considered in the clinical context, and a negative result does not rule out infection. Interpretive Data last revised 2023 Nasopharyngeal 11/09/2024 1: 24 PM PRIMER INSERTING MACHINE OPERATOR 11/09/2024 1:40 PM PRIMER INSERTING MACHINE OPERATOR Narrative KAVITA [facility] - 11/09/2024 2:24 PM PRIMER INSERTING MACHINE OPERATOR Is the Patient experiencing symptoms consistent with COVID?->Yes Pricilla Ramírez MD LAB MICROBIOLOGY - GENERA L ORDERABLES Final Result [facility]ITA [facility] 1 [facility] Department [place] [address] * (ABNORMAL) Troponin T high-sensitivity series (baseline, 2hr, 4hr, 6hr) (11/09/2024 12:37 PM PRIMER INSERTING MACHINE OPERATOR) Trop T hs 30(H) <=22 ng/L Comment: Interpretive Data For further hscTnT resources including the diagnostic algorithm and an aid in interpretation, copy and paste this link: https://nrl.testcatalog.org/show/hsTrop Current Interpretive Data last revised 2020. Blood 11/09/2024 12:3 7 PM PRIMER INSERTING MACHINE OPERATOR 11/09/2024 12:41 PM PRIMER INSERTING MACHINE OPERATOR Pricilla Ramírez MD LAB BLOOD ORDERABLES Denice l Result Performing Organization Address City/[facility]/ZIP Co de Phone Number [facility] ([place]) [address] [place] [address] [place] [address] * (ABNORMAL) eGFR (11/09/2024 12:37 PM PRIMER INSERTING MACHINE OPERATOR) eGFR 40(L) >=60 mL/min/1. 73 m2 Comment: [...] reviewed 2021. Blood 11/09/2024 12:3 7 PM PRIMER INSERTING MACHINE OPERATOR 11/09/2024 12:41 PM PRIMER INSERTING MACHINE OPERATOR Pricilla Ramírez MD LAB BLOOD ORDERABLES Denice l Result [facility] ([place]) 1 [facility] [place] [address] * (ABNORMAL) Differential, auto (11/09/2024 12:37 PM PRIMER INSERTING MACHINE OPERATOR) Neutrophil abs 6.3 1.5 - 6.5 K/cumm [...] on 2017. Blood 11/09/2024 12:3 7 PM PRIMER INSERTING MACHINE OPERATOR 11/09/2024 12:41 PM PRIMER INSERTING MACHINE OPERATOR Pricilla Ramírez MD LAB BLOOD ORDERABLES Denice l Result [facility] ([place]) 1 [facility] Department [place] [address] * POCT glucose (11/09/2024 12:37 PM PRIMER INSERTING MACHINE OPERATOR) [facility] Glucose, POC 84 70 - 199 mg/dL Blood 11/09/2024 12:3 7 PM PRIMER INSERTING MACHINE OPERATOR 11/09/2024 12:37 PM PRIMER INSERTING MACHINE OPERATOR Pricilla Ramírez MD LAB POCT ORDERABLES - DEV ICE Final Result Performing Organization Address [facility] de Phone Number [facility] ([place]) 1 [facility] Department [place] [address] * (ABNORMAL) CBC with auto differential (11/09/2024 12:37 PM PRIMER INSERTING MACHINE OPERATOR) [facility] WBC 10.0(H) 3.8 - 9.9 K/cumm Hgb 14.3 13.0 - 17.5 g/dL [facility] ([place]) Hct 42.6 38.9 - 50.3 % [facility] Plt 278 150 - 400 K/cumm [facility] MPV 9.4 9.1 - 12.3 fL [facility] RBC 4.54 4.30 - 5.80 M/cumm [facility] MCV 93.8 81.3 - 96.4 fL [facility] ([place]) MCH 31.5 27.1 - 33.3 pg [facility] MCHC 33.6 32.3 - 35.7 g/dL [facility] RDW CV 14.2 11.1 - 14.9 % [facility] RDW SD 48.9(H) 35.7 - 48.1 fL [facility] ([place]) NRBC abs 0.00 0.00 - 0.01 K/cumm [facility] ([place]) Blood 11/09/2024 12:3 7 PM PRIMER INSERTING MACHINE OPERATOR 11/09/2024 12:41 PM PRIMER INSERTING MACHINE OPERATOR us Pricilla Ramírez MD LAB BLOOD ORDERABLES Denice l Result Performing Organization Address City/[facility]/ZIP Co de Phone Number [facility] ([place]) [address] [facility] [employer] [address] * TSH (11/09/2024 12:37 PM PRIMER INSERTING MACHINE OPERATOR) Thyroid Stimulating Hormone 1.08 0.30 - 4.20 mcIUnit/mL Blood 11/09/2024 12:3 7 PM PRIMER INSERTING MACHINE OPERATOR 11/09/2024 1:40 PM PRIMER INSERTING MACHINE OPERATOR us Pricilla Ramírez MD LAB BLOOD ORDERABLES Denice l Result Performing Organization Address [facility] Co de Phone Number [facility] ([place]) [address] [facility] [place] [address] * (ABNORMAL) Comprehensive metabolic panel (11/09/2024 12:37 PM PRIMER INSERTING MACHINE OPERATOR) Sodium 136 135 - 145 mmol/L Potassium, pl 4.5 3.3 - 4.9 mmol/L [facility]) Chloride 97 97 - 110 mmol/L [facility]) CO2 30 22 - 32 mmol/L [facility] Anion gap 9 2 - 15 mmol/L [facility] ([place]) BUN 30(H) 6 - 25 mg/dL [facility] ([place]) Creatinine 1.65(H) 0.80 - 1.30 mg/dL [facility] Glucose 88 70 - 199 mg/dL [facility] ([place]) Comment: Interpretive Data Fasting glucose [...] [facility]) Blood 11/09/2024 12:3 7 PM PRIMER INSERTING MACHINE OPERATOR 11/09/2024 12:41 PM PRIMER INSERTING MACHINE OPERATOR Pricilla Ramírez MD LAB BLOOD ORDERABLES Denice l Result [facility] ([place]) 1 [facility] Department [place] [address] * ECG 12 lead (11/09/2024 12:29 PM PRIMER INSERTING MACHINE OPERATOR) 11/09/2024 12:2 9 PM PRIMER INSERTING MACHINE OPERATOR Narrative [facility] - 11/10/2024 6:43 AM PRIMER INSERTING MACHINE OPERATOR Vent Rate: 65 bpm RR Interval: 910 msec [place] Interval: 174 msec QRS Duration: 124 msec QT Interval: 397 msec QTC Interval: 409 msec P-R-T [place]: 46 - 56 - 14 degrees IMPRESSION: SINUS RHYTHM Right bundle branch block SEPTAL MYOCARDIAL INFARCTION , OF INDETERMINATE AGE [40+ ms Q WAVE IN V1/V2] MODERATE T-WAVE ABNORMALITY, CONSIDER ANTERIOR ISCHEMIA [-0.1+ mV T-WAVE IN V3/V4] ABNORMAL ECG NO CHANGE FROM PREVIOUS TRACING NOTED Electronically Signed By: Ricky Scott MD Pricilla Ramírez MD ECG ORDERABLES Final Res ult [facility] * eGFR (11/01/2024 11:40 AM PRIMER INSERTING MACHINE OPERATOR) eGFR 76 >=60 mL/min/1. 73 m2 Comment: [...] reviewed 2021. Blood 11/01/2024 11:4 0 AM PRIMER INSERTING MACHINE OPERATOR 11/01/2024 3:38 PM PRIMER INSERTING MACHINE OPERATOR us Notinfile Unknown LAB BLOOD ORDERABLES Final Res ult Performing Organization Address City/[facility]/ZIP Co de Phone Number [facility] [address] [place] [address] * (ABNORMAL) Differential, auto (11/01/2024 11:40 AM PRIMER INSERTING MACHINE OPERATOR) Neutrophil abs 3.7 1.5 - 6.5 K/cumm Imm gran abs 0.1 0.0 - 0.1 K/cumm [facility] Lymphocyte abs 1.8 0.8 - 3.3 K/cumm [facility] Monocyte abs 1.0(H) 0.2 - 0.8 K/cumm [facility] Eosinophil abs 0.4 0.0 - 0.5 K/cumm [facility] Basophil abs 0.1 0.0 - 0.1 K/cumm [facility] Neutrophil pct 53.0 % [facility] Comment: Interpretive Data Percent cell count reference ranges are not reported, since discordance with absolute values may lead to misinterpretation of CBC data. Current Interpretive Data was last revised on 2017. Imm gran pct 0.7 % [facility] Comment: Interpretive Data Percent cell count reference ranges are not reported, since discordance with absolute values may lead to misinterpretation of CBC data. Current Interpretive Data was last revised on 2017. Lymphocyte pct 25.0 % [facility] Comment: Interpretive Data Percent cell count reference ranges are not reported, since discordance with absolute values may lead to misinterpretation of CBC data. Current Interpretive Data was last revised on 2017. Monocyte pct 14.6 % [facility] Comment: Interpretive Data Percent cell count reference ranges are not reported, since discordance with absolute values may lead to misinterpretation of CBC data. Current Interpretive Data was last revised on 2017. Eosinophil pct 5.8 % [facility] Comment: Interpretive Data Percent cell count reference ranges are not reported, since discordance with absolute values may lead to misinterpretation of CBC data. Current Interpretive Data was last revised on 2017. Basophil pct 0.9 % [facility] Comment: Interpretive Data Percent cell count reference ranges are not reported, since discordance with absolute values may lead to misinterpretation of CBC data. Current Interpretive Data was last revised on 2017. Blood 11/01/2024 11:4 0 AM PRIMER INSERTING MACHINE OPERATOR 11/01/2024 3:36 PM PRIMER INSERTING MACHINE OPERATOR us Notinfile Unknown LAB BLOOD ORDERABLES Final Res ult [facility] [address] Department [place] [address] * (ABNORMAL) CBC with auto differential (11/01/2024 11:40 AM PRIMER INSERTING MACHINE OPERATOR) WBC 7.0 3.8 - 9.9 K/cumm Hgb 13.9 13.0 - 17.5 g/dL [facility] Hct 43.2 38.9 - 50.3 % [facility] Plt 211 150 - 400 K/cumm [facility] MPV 9.9 9.1 - 12.3 fL [facility] RBC 4.45 4.30 - 5.80 M/cumm [facility] MCV 97.1(H) 81.3 - 96.4 fL [facility] MCH 31.2 27.1 - 33.3 pg [facility] MCHC 32.2(L) 32.3 - 35.7 g/dL [facility] RDW CV 14.4 11.1 - 14.9 % [facility] RDW SD 51.4(H) 35.7 - 48.1 fL [facility] NRBC abs 0.00 0.00 - 0.01 K/cumm [facility] Blood 11/01/2024 11:4 0 AM PRIMER INSERTING MACHINE OPERATOR 11/01/2024 3:36 PM PRIMER INSERTING MACHINE OPERATOR us Notinfile Unknown LAB BLOOD ORDERABLES Final Res ult [facility] [address] Department [place] [address] * (ABNORMAL) Basic metabolic panel (11/01/2024 11:40 AM PRIMER INSERTING MACHINE OPERATOR) Sodium 135 135 - 145 mmol/L Potassium, pl 4.9 3.3 - 4.9 mmol/L [facility] Chloride 96(L) 97 - 110 mmol/L [facility] CO2 28 22 - 32 mmol/L [facility] Anion gap 11 2 - 15 mmol/L [facility] BUN 26(H) 6 - 25 mg/dL [facility] Creatinine 0.96 0.80 - 1.30 mg/dL [facility] Glucose 94 70 - 199 mg/dL [facility] Comment: Interpretive Data Fasting glucose >/= 126 [...] 2022. Calcium 9.4 8.5 - 10.3 mg/dL [facility] Blood 11/01/2024 11:4 0 AM PRIMER INSERTING MACHINE OPERATOR 11/01/2024 3:35 PM PRIMER INSERTING MACHINE OPERATOR us Notinfile Unknown LAB BLOOD ORDERABLES Final Res ult KAVITA [facility] [address] Department [place] [address] * eGFR (10/13/2024 10:04 AM PRIMER INSERTING MACHINE OPERATOR) eGFR 62 >=60 mL/min/1. 73 m2 Comment: [...] reviewed 2021. Blood 10/13/2024 10:0 4 AM PRIMER INSERTING MACHINE OPERATOR 10/13/2024 2:12 PM PRIMER INSERTING MACHINE OPERATOR us Harsha Anand MD LAB BLOOD ORDERABLES Fi nal Result KAVITA [facility] 1 [facility] Department [place] [address] * (ABNORMAL) Hemoglobin A1c (10/13/2024 10:04 AM PRIMER INSERTING MACHINE OPERATOR) Hgb A1C 6.1(H) 4.0 - 5.6 % Estimated Average Glucose 128 mg/dL [facility]ITA [facility] ([place]) Comment: The ADA recommends reporting an estimated Average Glucose (eAG) with all Hemoglobin A1c results using the equation derived from a study of 507 normal and diabetic adults. Minority populations were underrepresented and children were not included. (Diabetes Care 31:2558-8088, 2008). The eAG is not equivalent to a fasting glucose. Blood 10/13/2024 10:0 4 AM PRIMER INSERTING MACHINE OPERATOR 10/13/2024 2:12 PM PRIMER INSERTING MACHINE OPERATOR Harsha Anand MD LAB BLOOD ORDERABLES Fi nal Result K[facility]ITA [facility] ([place]) 1 [facility] Department [place] [address] * (ABNORMAL) Lipid panel (10/13/2024 10:04 AM PRIMER INSERTING MACHINE OPERATOR) Cholesterol 124 30 - 199 mg/dL Comment: [...] on 2018. HDL 35(L) >=40 mg/dL KAVITA [facility] ([place]) Comment: Interpretive Data Ages < or [...] NCEP Expert Panel. Circulation 2004;110:227 3. Kip Marie al. BRONSON Cardiol. 2020 January 18;5(5):540-548. doi: [...] last revised on 2018. Chol/HDL ratio 4 [facility] ([place]) Blood 10/13/2024 10:0 4 AM PRIMER INSERTING MACHINE OPERATOR 10/13/2024 2:12 PM PRIMER INSERTING MACHINE OPERATOR Narrative [facility] - 10/13/2024 2:28 PM PRIMER INSERTING MACHINE OPERATOR Has the patient been fasting for 8 hours or more?->Yes us Harsha Anand MD LAB BLOOD ORDERABLES Fi nal Result [facility] ([place]) 1 [facility] Department [place] [address] * Comprehensive metabolic panel (10/13/2024 10:04 AM PRIMER INSERTING MACHINE OPERATOR) Sodium 140 135 - 145 mmol/L Potassium, [...] ([place]) AST 22 10 - 50 Units/L [facility] ([place]) Blood 10/13/2024 10:0 4 AM PRIMER INSERTING MACHINE OPERATOR 10/13/2024 2:12 PM PRIMER INSERTING MACHINE OPERATOR Narrative [facility] ([place] - 10/13/2024 2:28 PM PRIMER INSERTING MACHINE OPERATOR Has the patient fasted?->Yes Harsha Anand MD LAB BLOOD ORDERABLES Fi nal Result [facility] ([place]) 1 [facility] Department [place] [address] * CT Cervical Spine WO Contrast (09/11/2024 3:30 PM PRIMER INSERTING MACHINE OPERATOR) Anatomical Region Laterality Modality Spine N/A Computed Tomogra phy 09/11/2024 3:39 PM PRIMER INSERTING MACHINE OPERATOR Narrative 09/11/2024 3:45 PM PRIMER INSERTING MACHINE OPERATOR EXAM DESCRIPTION: CT HEAD WO CONTRAST; CT [...] air cells. ORBITS: No acute abnormality. Right stillaguamish ocular lens replaced. OTHER: No other significant [...] Rhett Griffith M.D. ADALBERTO: ADALBERTO Report ID: [id number] Reading Location: [id number] Procedure Note Rhett Griffith MD - 09/11/2024 [...] air cells. ORBITS: No acute abnormality. Right stillaguamish ocular lens replaced. OTHER: No other significant [...] Rhett Griffith M.D. ADALBERTO: ADALBERTO Report ID: [id number] Reading Location: [id number] us Kenneth Andino Demareliza CAR IMG CT PROCEDURES Final Res ult * CT Head WO Contrast (09/11/2024 3:30 PM PRIMER INSERTING MACHINE OPERATOR) Anatomical Region Laterality Modality Head and Neck N/A Computed Tomogra phy 09/11/2024 3:39 PM PRIMER INSERTING MACHINE OPERATOR Narrative 09/11/2024 3:45 PM PRIMER INSERTING MACHINE OPERATOR EXAM DESCRIPTION: CT HEAD WO CONTRAST; CT [...] air cells. ORBITS: No acute abnormality. Right stillaguamish ocular lens replaced. OTHER: No other significant [...] Rhett Griffith M.D. ADALBERTO: ADALBERTO Report ID: [id number] Reading Location: [id number] Procedure Note Rhett Griffith MD - 09/11/2024 [...] air cells. ORBITS: No acute abnormality. Right stillaguamish ocular lens replaced. OTHER: No other significant [...] Rhett Griffith M.D. ADALBERTO: ADALBERTO Report ID: [id number] Reading Location: [id number] us Kenneth Hernandez NP IMG CT PROCEDURES Final [...] Isadora Jimenez M.D. LL: LL Report ID: [id number] Reading Location: [id number] Procedure Note Isadora Jimenze MD - 06/07/2024 EXAM DESCRIPTION: CT CHEST [...] Isadora Jimenez M.D. LL: SHRAVAN Report ID: [id number] Reading Location: [place] [address] PROCEDURES Final R esult * PSA screen (06/08/2023 9:40 AM CDT) PSA-Total 0.22 <=6.20 ng/mL [facility] ([place]) Comment: Interpretive Data AGE SEX REFERENCE INTERVAL [...] 9:40 AM CDT 06/08/2023 10:30 AM CDT Result [facility] Harsha Anand MD LAB BLOOD ORDERABLES Fi nal Result Performing Organization Address [facility] Co de Phone Number KAVITA [facility] ([place]) [address] [facility] [place] [address] * Albumin Creatinine Ratio, Urine (06/08/2023 9:40 AM CDT) Albumin Ur 31.6 mg/L [facility] ([place]) Comment: Interpretive Data No reference range established. Current interpretive data was last revised 2019. Testing performed by: [address] [address] Creatinine Ur 134.9 mg/dL K[facility]ITA AGUIL[facility] ([place]) Comment: Interpretive Data No reference range established. Current interpretive data was last revised 2019. Testing performed by: [facility], [address] [place] [address]., [address] Albumin Creatinine Ratio, Ur 23 1 - 29 mg/g [facility] ([place]) Comment:Testing performed by : [address] [address] Urine 06/08/2023 9:40 AM CDT 06/08/2023 2:01 PM CDT Harsha Anand MD LAB URINE ORDERABLES Fi nal Result Performing Organization Address [facility] Co de Phone Number K[facility]ITA [facility] ([place]) [address] [facility] [place] [address] * Diabetic Eye Exam (05/16/2021) Historical Provider HEALTH MAINTENANCE Final Result * DIABETES FOOT EXAM (08/04/2019) Diabetic Foot Exam Abnormal Historical Provider HEALTH MAINTENANCE Final Result * Colonoscopy (05/01/2011) Anatomical Region Laterality Modality Other us Historical Provider ENDOSCOPY PROCEDURES Denice l Result from Last 3 Months or Most Recently Relevant to Health Maintenance Additional Health Concerns Infection Onset Date Last Indicated COVID: Recovered Comment:Added based on recent COVID infection. 11/20/2024 025 Insurance MEDICARE MEDICARE COMMERCIAL GENERIC MEDICARE [facility] FINANCIAL Advance Directives For more information, please contact: [phone] Documents on File Type Date Recorded Patient Cane Splicer Expl anation ADVANCE DIRECTIVE 10/20/2024 9:44 AM [...] cardioversionNo internal / external pacemaker Care Teams Metal Rivet Machine Operator Relationship Specialty Start Date End Date Harsha Anand MD [address] [place] [address] [address] PCP - General Internal Medicine 10/16/24
--- OUTSIDE RECORDS SUMMARY | 2024-11-27 19:23 | XMS_ITS | Encounter Summary ---
Author Organization [facility] Address [address] [place] [address] Care Team Providers Care Lpn Home Health Name Role Phone Unavailable Primary Care Provider Unavailabl e Encounter Details Date Type Department Care Team (Late st Contact Info) Description 06/03/2018 Lab Requisition [facility] DermPath Lab [address] [place] [id number] Lion More MD [address] [place] [address] Social History Tobacco Use Types [...] Priority Date/Time Associated Diagnosis Comments DERMATOPATHOLOGY Routine 06/02/2018 12:0 0 AM CDT documented in this encounter Results * DERMATOPATHOLOGY (06/02/2018 12:00 AM CDT) Case Report Dermatopathology Report Case: [id number] Authorizing Provider: Lion More MD Collected: 06/02/2018 12:00 AM Pathologist: Cata Shaffer MD Received: 06/03/2018 11:55 AM Specimen: Skin, left vertex post scalp 8 3:51 PM CDT DERMATOPATHOLOGY LABORATORY Final Diagnosis Specimen A. 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 8 3:51 PM CDT DERMATOPATHOLOGY LABORATORY Gross Description Specimen A: Received is one formalin filled container labeled with the patient's name and designated left vertex post scalp. The specimen consists of a shave biopsy measuring [id number]. Jar 0. 3:51 PM [facility] DERMATOPATHOLOGY LABORATORY Microscopic Description Specimen A. SKIN, left vertex post scalp: The epidermis shows parakeratosis, full thickness disorderly maturation of keratinocytes, mitoses at different levels, and dyskeratotic cells. There is abundant melanin pigment in some of the keratinocytes. 3:51 PM T DERMATOPATHOLOGY LABORATORY Disclaimer An external and internal positive and negative controls are appropriate for the histochemical, immunohistochemical and immunofluorescence stain(s) in this case (if any), except where stated explicitly. The performance characteristics of the stain(s) cited in this report were developed and its performance characteristic determined by the Dermatopathology Laboratory at [facility]. These tests need not be, and therefore are not, approved by the [place] Food and Drug Administration. The tests are used for clinical purposes. Billing Codes Specimen Charges Stain Charges 03826 1 3:51 PM CDT DERMATOPATHOLOGY LABORATORY Embedded Images 3:51 PM T DERMATOPATHOLOGY LABORATORY Pathology/Cytolog y TISSUE SPECIMEN FROM SKIN / Unknown 06/02/2018 06/03/2018 11:55 AM CDT Lion More MD LAB - PATHOLOGY/CYTO LOGY ORDERABLES Performing Organization Address City/State/[facility] Co de Phone Number DERMATOPATHOLOGY LABORATORY [facility] - Department of Dermatology [address] [place] [address] [address] Floor Lab [address] [place], [place] [id number] [place] [address] documented in this encounter Visit Diagnoses Not on filedocumented in this encounter
--- OUTSIDE RECORDS SUMMARY | 2024-11-27 19:23 | XMS_ITS | Referral Summary ---
Author Organization [facility] Address [address] [place] [address] Care Team Providers Care [employer] Name Role Phone Unavailable Primary Care Provider Unavailabl e Source Comments [facility],non-owned Affiliates and Associated Physician Practices is amultiple site organization consisting of ambulatory clinics and hospital sitesin [place], [place], [place] and [place]. This disclosure is being madepursuant to the Care Everywhere program and may not contain all information available regarding this patient. Last updated 18.[facility] Social History Tobacco Use Types Packs/Day Years Used Date Smoking Tobacco: Never Assessed Sex and Gender Information Value Date Recorded Sex Assigned at Not on file Gender Identity Not on file Sexual Orientation Not on file Plan of Treatment Not on file
[2024-11-27 20:20] VITALS: BP 110/65; PULSE 66; RESP 19; O2SAT 98
== END 2024-11-27 21:00 ==
PROVIDERS: Emergency Provider Emergency Medicine; PCP Internal Medicine
DX: S01.81XA Laceration without foreign body of other part of head, initial encounter (principal); R93.0 Abnormal findings on diagnostic imaging of skull and head, not elsewhere classified; W08.XXXA Fall from other furniture, initial encounter
CPT/HCPCS: 70450; 99284